=== PATIENT | female | born 1985 | race Caucasian/White ===

== ENCOUNTER 2019-08-23 14:59 | Emergency (ER) | payer OTHER ==
[2019-08-23 15:45] LABS: Absolute Neutrophil Ct (ANC) 6.34 (1.4-6.9); BASOPHIL % 0.5 % (0.0-0.4); Basophil (Absolute #) 0.05 (0-0.4); Eosinophil % 5.1 % (0.00-5.0); Eosinophil (Absolute #) 0.57 (0-0.5); Hematocrit 42.8 % (35-47); Hemoglobin 13.1 gm/dl (12.0-16.0); Lymphocyte (Absolute #) 3.36 (1.0-4.6); Lymphocytes % 30.3 % (24.0-44.0); Mean Cell Volume 88.4 fl (78-100); Mean Corpuscular Hemoglobin 27.1 pg (26-32); Mean Corpuscular Hgb Concent. 30.6 g/dl (32-36); Mean Platelet Volume 9.6 fl (7.5-11.0); Monocyte (Absolute #) 0.77 (0.0-1.3); Monocytes % 6.9 % (0.0-12.0); Neutrophil % 57.2 % (36.0-66.0); Platelet Count 358 K/mm3 (150-450); Red Blood Count 4.84 M/mm3 (4.1-5.4); Red Cell Distribution Width 16.3 % (11.5-14.0); White Blood Count 11.1 K/mm3 (4.0-10.5)
--- NOTE | 2019-08-23 15:48 | ERPHSYRPT ---
- History of Present Illness Time Seen by Provider: 08/23/19 15:10 Source: patient Patient Subjective Stated Complaint: pt to ER with complaints of N/V/D, fever, cough, shortness of breath, dizziness x 1 month. pt states she is on antibiotics for sinus infection. pt needs negative covid test. Triage Nursing Assessment: pt A&Ox4. pt ambulatory. skin pwd. appropriate. Physician History: Patient is a 33-year-old female presents to our ED with complaints of nausea vomiting diarrhea fever cough shortness of breath that is been ongoing for the past several days. Patient states she has been dizzy for about a month. Patient was receiving physical therapy for her shoulder. Patient advised by her therapist that she cannot resume physical therapy and that she tested negative for COVID. Symptoms are mild to moderate in intensity. No specific worsening improving factors. Patient is otherwise healthy. No associated chest pain. Patient voices no other complaints at this time. Patient advised staff that she is currently on Augmentin for sinus infection. Timing/Duration: day(s) Activities at Onset: none Severity of Dyspnea-Max: moderate Severity of Dyspnea-Current: mild Possible Cause: no prior episodes Modifying Factors: Improves With: nothing Associated Symptoms: No chest pain/discomfort, No heart racing, No leg swelling, No painful breathing Allergies/Adverse Reactions: bupropion [From Wellbutrin] Allergy (Verified 08/23/19 15:28) dicyclomine [From Bentyl] Allergy (Verified 08/23/19 15:28) haloperidol [From Haldol] Allergy (Verified 08/23/19 15:28) insulin glargine [From Basaglar KwikPen U-100 Insulin] Allergy (Verified 08/23/19 15:28) ketorolac [From Toradol] Allergy (Verified 08/23/19 15:28) metoclopramide [From Reglan] Allergy (Verified 08/23/19 15:28) ondansetron [From Zofran] Allergy (Verified 08/23/19 15:28) prochlorperazine [From Compazine] Allergy (Verified 08/23/19 15:28) Home Medications: Amox Tr/Potass Clav. 875 mg [Augmentin 875-125 Tablet] 1 tab PO BID 08/23/19 [History] Carbidopa/Levodopa [Sinemet 25-250 mg Tablet] 1 tab PO BID 08/23/19 [History] Diphenhydramine HCl 25 mg [Benadryl 25 mg Capsule] 25 mg PO DAILY 08/23/19 [History] Fluoxetine HCl [Prozac] 80 mg PO DAILY 08/23/19 [History] Gabapentin 1,500 mg PO DAILY 08/23/19 [History] Insulin Detemir [Levemir] 18 units SQ DAILY 08/23/19 [History] Metformin HCl 500 mg [Glucophage 500 MG] 1,000 mg PO DAILY 08/23/19 [History] [place]-3 Fatty Acids/Fish Oil [Fish Oil 1,000 mg Capsule] 2 cap PO DAILY 08/23/19 [History] Pioglitazone 30 mg [Actos 30 MG] 30 mg PO DAILY 08/23/19 [History] Vits W-Ca,Fe,FA(<1Mg) [] 1 tab PO DAILY 08/23/19 [History] Promethazine HCl 25 mg [Phenergan 25 mg] 25 mg PO DAILY 08/23/19 [History] Zolpidem Tartrate 5 mg [Ambien 5 MG Tablet] 5 mg PO DAILY 08/23/19 [History] hydroCHLOROthiazide [Hydrochlorothiazide] 25 mg PO DAILY 08/23/19 [History] Hx Tetanus, Diphtheria Vaccination/Date Given: No Hx Influenza Vaccination/Date Given: No Hx Pneumococcal Vaccination/Date Given: No Immunizations Up to Date: Yes Travel Risk - International Travel Have you traveled outside of the country in past 3 weeks: No - Coronavirus Screening Are you exhibiting any of the following symptoms?: Yes Symptoms: Fever, Cough: New Onset, Shortness of Breath, Vomiting/Diarrhea, Headaches/Body Aches/Fatigue Close contact with a COVID-19 positive Pt in past 14-21 Days: No - Review of Systems Constitutional: No Symptoms, No Fever, No Chills Eyes: No Symptoms Ears, Nose, & Throat: No Symptoms Respiratory: No Symptoms, No Cough, No Dyspnea Cardiac: No Symptoms, No Chest Pain, No Edema, No Syncope Abdominal/Gastrointestinal: No Symptoms, No Abdominal Pain, No Nausea, No Vomiting, No Diarrhea Genitourinary Symptoms: No Symptoms, No Dysuria Musculoskeletal: No Symptoms, No Back Pain, No Neck Pain Skin: No Symptoms, No Rash Neurological: No Symptoms, No Dizziness, No Focal Weakness, No Sensory Changes Psychological: No Symptoms Endocrine: No Symptoms Hematologic/Lymphatic: No Symptoms Immunological/Allergic: No Symptoms All Other Systems: Reviewed and Negative - Past Medical History Pertinent Past Medical History: Yes Neurological History: Migraines Respiratory History: COPD Endocrine Medical History: Diabetes Type II Psycho-Social History: Anxiety, Depression - Past Surgical History Past Surgical History: Yes Gastrointestinal: Cholecystectomy Female Surgical History: Section, Tubal Ligation - Social History Smoking Status: Current every day smoker How long have you smoked: 24 years Exposure to second hand smoke: Yes Drug Use: none Patient Lives Alone: No - Female History Hx Now: No - Nursing Vital Signs Nursing Vital Signs: Initial Vital Signs Temperature 98.1 F 08/23/19 15:09 Pulse Rate 99 H 08/23/19 15:09 Respiratory Rate 18 08/23/19 15:09 Blood Pressure 126/93 08/23/19 15:09 O2 Sat by Pulse Oximetry 97 08/23/19 15:09 - Physical Exam General Appearance: no apparent distress, alert Eye Exam: PERRL/EOMI Ears, Nose, Throat Exam: hearing grossly normal, normal ENT inspection Neck Exam: normal inspection, supple Respiratory Exam: normal breath sounds, lungs clear, airway intact, No chest tenderness, No respiratory distress Cardiovascular/Chest Exam: normal heart sounds, regular rate/rhythm Abdominal/Gastrointestinal Exam: soft, No tenderness, No distention, No mass Extremity Exam: non-tender, normal range of motion, normal inspection, no calf tenderness, no pedal edema Peripheral Pulses Exam: dorsalis-pedis (R): 2+, dorsalis-pedis (L): 2+ Neurologic Exam: alert, oriented x 3, cooperative, 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 nml as tested, sensation nml, No motor deficits Skin Exam: normal color, warm, No dry Lymphatic Exam: No adenopathy SpO2 Interpretation: normal SpO2: 95 O2 Delivery: Room Air - Course Nursing assessment & vital signs reviewed: Yes EKG Interpreted by Me: RATE ([id number]), Sinus Rhythm, NORMAL AXIS, NORMAL INTERVALS - Radiology Exams Chest X-ray Interpretation: Discussed w/ radiologist (Portable chest demonstrates normal heart lungs and bony thorax with incidental right lung calcified granuloma.) Ordered Tests: Active Orders 24 hr Category Date Time Status Resident Assistant Cna STAT Care 08/23/19 15:17 Active EKG-ER Only STAT Care 08/23/19 15:15 Active IV Insertion STAT Care 08/23/19 15:15 Active Pulse Oximetry (ED) STAT Care 08/23/19 15:15 Active CHEST 1 VIEW (PORTABLE) Stat Exams 08/23/19 15:16 Completed CHEST WITH CONTRAST [CT] Stat Exams 08/23/19 16:11 Completed BLOOD CULTURE Stat Lab 08/23/19 15:35 Received CBC W DIFF Stat Lab 08/23/19 15:30 Completed CMP Stat Lab 08/23/19 15:30 Completed D-DIMER QUANTITATIVE Stat Lab 08/23/19 15:30 Completed HCG,QUALITATIVE URINE Stat Lab 08/23/19 15:16 Uncollected TROPONIN Q3H Lab 08/23/19 15:30 Completed TROPONIN Q3H Lab 08/23/19 18:30 Ordered TROPONIN Q3H Lab 08/23/19 21:30 Ordered TROPONIN Q3H Lab 08/24/19 00:30 Ordered TROPONIN Q3H Lab 08/24/19 03:30 Ordered UA W/RFX UR CULTURE Stat Lab 08/23/19 15:16 Uncollected Lab/Rad Data: Laboratory Result Diagrams 08/23/19 15:30 08/23/19 15:30 Laboratory Results 08/23/19 08/23/19 08/23/19 Range/Units 15:30 15:30 15:30 WBC (4.0-10.5) K/mm3 RBC (4.1-5.4) M/mm3 Hgb (12.0-16.0) gm/dl Hct (35-47) % MCV (78-100) fl MCH (26-32) pg MCHC (32-36) g/dl RDW (11.5-14.0) % Plt Count (150-450) K/mm3 MPV (7.5-11.0) fl Gran % (36.0-66.0) % Eos # (Auto) (0-0.5) Absolute Lymphs (auto) (1.0-4.6) Absolute Monos (auto) (0.0-1.3) Lymphocytes % (24.0-44.0) % Monocytes % (0.0-12.0) % Eosinophils % (0.00-5.0) % Basophils % (0.0-0.4) % Absolute Granulocytes (1.4-6.9) Basophils # (0-0.4) D-Dimer 808 H* (215-500) ng/mL Sodium (137-145) mmol/L Potassium (3.5-5.1) mmol/L Chloride (98-107) mmol/L Carbon Dioxide (22-30) mmol/L Anion Gap (5-15) MEQ/L BUN (7-17) mg/dL Creatinine (0.52-1.04) mg/dL Estimated GFR ML/MIN Glucose (74-106) mg/dL Calcium (8.4-10.2) mg/dL Total Bilirubin (0.2-1.3) mg/dL AST (14-36) U/L ALT (0-35) U/L Alkaline Phosphatase (38-126) U/L Troponin I < 0.012 (0.000-0.034) ng/mL Serum Total Protein (6.3-8.2) g/dL Albumin (3.5-5.0) g/dL Influenza Type A Ag NEGATIVE (NEGATIVE) Influenza Type B Ag NEGATIVE (NEGATIVE) RSV (PCR) NEGATIVE (Negative) 08/23/19 08/23/19 Range/Units 15:30 15:30 WBC 11.1 H (4.0-10.5) K/mm3 RBC 4.84 (4.1-5.4) M/mm3 Hgb 13.1 (12.0-16.0) gm/dl Hct 42.8 (35-47) % MCV 88.4 (78-100) fl MCH 27.1 (26-32) pg MCHC 30.6 L (32-36) g/dl RDW 16.3 H (11.5-14.0) % Plt Count 358 (150-450) K/mm3 MPV 9.6 (7.5-11.0) fl Gran % 57.2 (36.0-66.0) % Eos # (Auto) 0.57 H (0-0.5) Absolute Lymphs (auto) 3.36 (1.0-4.6) Absolute Monos (auto) 0.77 (0.0-1.3) Lymphocytes % 30.3 (24.0-44.0) % Monocytes % 6.9 (0.0-12.0) % Eosinophils % 5.1 H (0.00-5.0) % Basophils % 0.5 (0.0-0.4) % Absolute Granulocytes 6.34 (1.4-6.9) Basophils # 0.05 (0-0.4) D-Dimer (215-500) ng/mL Sodium 138 (137-145) mmol/L Potassium 3.8 (3.5-5.1) mmol/L Chloride 104 (98-107) mmol/L Carbon Dioxide 24 (22-30) mmol/L Anion Gap 13.6 (5-15) MEQ/L BUN 8 (7-17) mg/dL Creatinine 0.54 (0.52-1.04) mg/dL Estimated GFR > 60.0 ML/MIN Glucose 139 H (74-106) mg/dL Calcium 9.7 (8.4-10.2) mg/dL Total Bilirubin 0.40 (0.2-1.3) mg/dL AST 23 (14-36) U/L ALT 21 (0-35) U/L Alkaline Phosphatase 75 (38-126) U/L Troponin I (0.000-0.034) ng/mL Serum Total Protein 7.7 (6.3-8.2) g/dL Albumin 4.3 (3.5-5.0) g/dL Influenza Type A Ag (NEGATIVE) Influenza Type B Ag (NEGATIVE) RSV (PCR) (Negative) - Progress Progress: improved Air Movement: good Blood Culture(s) Obtained: Yes Antibiotics given: No - Departure Departure Disposition: Home Clinical Impression: Left adrenal mass, Granulomatous disease, chronic, Fatty liver, Thoracic arthritis Condition: Stable Critical Care Time: No Referrals: DOCTOR,NO FAMILY [Primary Care Provider] - Additional Instructions: Discharge/Care Plan SYLVIA MYERS was seen on 08/23/19 in the Emergency Room. The patient was counseled regarding Diagnosis,Lab results, Imaging studies, need for follow up and when to return to the Emergency Room. Prescriptions given: Discharge Note I have spoken with the patient and/or caregivers. I have explained the patient's condition, diagnosis and treatment plan based on the information available to me at this time. I have answered the patient's and/or caregiver's questions and addressed any concerns. The patient and/or caregivers have as good understanding of the patient's diagnosis, condition and treatment plan as can be expected at this point. The vital signs have been stable. The patient's condition is stable and appropriate for discharge from the emergency department. The patient will pursue further outpatient evaluation with the primary care physician or other designated or consulting physician as outlined in the discharge instructions. The patient and/or caregivers are agreeable to this plan of care and follow-up instructions have been explained in detail. The patient and/or caregivers have received these instruction. The patient/and or caregivers are aware that any significant change in condition or worsening of symptoms should prompt an immediate return to this or the closest emergency department or call 911.
[2019-08-23 16:07] LABS: ALBUMIN 4.3 g/dL (3.5-5.0); ALKALINE PHOSPHATASE 75 U/L (38-126); ANION GAP 13.6 MEQ/L (5-15); BLOOD UREA NITROGEN 8 mg/dL (7-17); CHLORIDE 104 mmol/L (98-107); Calcium 9.7 mg/dL (8.4-10.2); Carbon Dioxide 24 mmol/L (22-30); Creatinine 1 0.54 mg/dL (0.52-1.04); Glucose 139 mg/dL (74-106); Potassium 3.8 mmol/L (3.5-5.1); SGOT/AST 23 U/L (14-36); SGPT/ALT 21 U/L (0-35); SODIUM 138 mmol/L (137-145); Total Protein 7.7 g/dL (6.3-8.2)
[2019-08-23 16:19] LABS: INFLUENZA A NEGATIVE (NEGATIVE); INFLUENZA B NEGATIVE (NEGATIVE); RESPIRATORY SYNCTIAL VIRUS NEGATIVE (Negative)
--- NOTE | 2019-08-23 16:39 | XRAY ---
Indication: Fever, cough, nausea, and vomiting. Comparison: None Portable chest demonstrates normal heart, lungs, and bony thorax with incidental right lung calcified granuloma.
[2019-08-23 17:03] VITALS: O2SAT 95
--- NOTE | 2019-08-23 17:14 | XRAY ---
Indication: Multiple contiguous axial images obtained through the chest using 80 cc Isovue 370 contrast and PE protocol. Comparison: None There is suboptimal opacification of the pulmonary arteries limiting evaluation for pulmonary embolus. No large central pulmonary embolus. Heart is not enlarged. Several mediastinal/subcarinal calcified nodes. No pathologic mediastinal/hilar lymphadenopathy. Lungs are inflated and clear with a few incidental right middle lobe calcified granulomas. No suspicious pulmonary mass, infiltrate, or effusion. Bony thorax intact with minimal degenerative changes throughout the spine and old right 8/9 rib fractures. Limited upper abdomen demonstrates fatty liver. Also 3.3 cm noncalcified left adrenal gland mass. Impression: 1. Pulmonary embolus evaluation limited due to suboptimal opacification. No large central pulmonary embolus. 2. No acute cardiopulmonary abnormalities. 3. 3.3 cm left adrenal gland mass. Finding possibly adenoma and can be confirmed with a noncontrasted exam. 4. Incidental fatty liver and old granulomatous disease.
[2019-08-23 18:09] LABS: Appearance CLEAR (CLEAR); Bilirubin NEGATIVE (NEGATIVE); Blood NEGATIVE Ery/ul (0-5); Epithelial Cells RARE /HPF (FEW); Glucose NEGATIVE (NEGATIVE); Ketones NEGATIVE (NEGATIVE); Leukocyte Esterase NEGATIVE (NEGATIVE); Nitrite NEGATIVE (NEGATIVE); Protein,Urine Dip NEGATIVE (Negative); Specific Gravity 1.028 (1.005-1.025); Urobilinogen NEGATIVE mg/dL (0-1)
[2019-08-23 18:41] VITALS: BP 95/60; PULSE 68
== END 2019-08-23 18:41 | disposition home or self-care (01) ==
LOC: ED 14:59
DX: E27.9 Disorder of adrenal gland, unspecified (principal); D71 Functional disorders of polymorphonuclear neutrophils; K76.0 Fatty (change of) liver, not elsewhere classified; M46.94 Unspecified inflammatory spondylopathy, thoracic region; J32.9 Chronic sinusitis, unspecified; J44.9 Chronic obstructive pulmonary disease, unspecified; E11.9 Type 2 diabetes mellitus without complications; F41.9 Anxiety disorder, unspecified; F32.9 Major depressive disorder, single episode, unspecified; Z72.0 Tobacco use; Z79.4 Long term (current) use of insulin; Z79.899 Other long term (current) drug therapy
CPT/HCPCS: 36000; 36415; 71045; 71260; 80053; 81001; 84484; 84703; 85025; 85379; 87040; 87631; 93005; 93041; 94760; 99284; U0003

== ENCOUNTER 2019-12-09 15:32 | Emergency (ER) | payer OTHER ==
--- NOTE | 2019-12-09 15:33 | ERPHSYRPT ---
- History of Present Illness Time Seen by Provider: 12/09/19 15:33 Source: patient Exam Limitations: no limitations Physician History: This is a diabetic, right-handed white 34-year-old white female who was breaking up a fight between a new dog that she recently rescued and her home dog. The new rescue dog was not acting strangely or unusual. The patient had bites to her left hand. Patient's tetanus shot is not up-to-date. Additionally, the new rescue dog is [id number] and it is unclear whether the dog has its immunizations up-to-date. Timing/Duration: today Quality: burning, painful Severity: mild Location: hands (Left) Possible Causes: other (Dog bite) Associated Symptoms: denies symptoms Allergies/Adverse Reactions: bupropion [From Wellbutrin] Allergy (Verified 08/23/19 15:28) dicyclomine [From Bentyl] Allergy (Verified 08/23/19 15:28) haloperidol [From Haldol] Allergy (Verified 08/23/19 15:28) insulin glargine [From Basaglar KwikPen U-100 Insulin] Allergy (Verified 08/23/19 15:28) ketorolac [From Toradol] Allergy (Verified 08/23/19 15:28) metoclopramide [From Reglan] Allergy (Verified 08/23/19 15:28) ondansetron [From Zofran] Allergy (Verified 08/23/19 15:28) prochlorperazine [From Compazine] Allergy (Verified 08/23/19 15:28) Home Medications: Amox Tr/Potass Clav. 875 mg [Augmentin 875-125 Tablet] 1 tab PO BID 08/23/19 [History] Carbidopa/Levodopa [Sinemet 25-250 mg Tablet] 1 tab PO BID 08/23/19 [History] Diphenhydramine HCl 25 mg [Benadryl 25 mg Capsule] 25 mg PO DAILY 08/23/19 [History] Fluoxetine HCl [Prozac] 80 mg PO DAILY 08/23/19 [History] Gabapentin 1,500 mg PO DAILY 08/23/19 [History] Insulin Detemir [Levemir] 18 units SQ DAILY 08/23/19 [History] Metformin HCl 500 mg [Glucophage 500 MG] 1,000 mg PO DAILY 08/23/19 [History] [place]-3 Fatty Acids/Fish Oil [Fish Oil 1,000 mg Capsule] 2 cap PO DAILY 08/23/19 [History] Pioglitazone 30 mg [Actos 30 MG] 30 mg PO DAILY 08/23/19 [History] Vits W-Ca,Fe,FA(<1Mg) [] 1 tab PO DAILY 08/23/19 [History] Promethazine HCl 25 mg [Phenergan 25 mg] 25 mg PO DAILY 08/23/19 [History] Zolpidem Tartrate 5 mg [Ambien 5 MG Tablet] 5 mg PO DAILY 08/23/19 [History] hydroCHLOROthiazide [Hydrochlorothiazide] 25 mg PO DAILY 08/23/19 [History] Hx Tetanus, Diphtheria Vaccination/Date Given: No Hx Influenza Vaccination/Date Given: No Hx Pneumococcal Vaccination/Date Given: No Travel Risk - International Travel Have you traveled outside of the country in past 3 weeks: No - Coronavirus Screening Are you exhibiting any of the following symptoms?: No Close contact with a COVID-19 positive Pt in past 14-21 Days: No - Review of Systems Constitutional: No Symptoms Eyes: No Symptoms Ears, Nose, & Throat: No Symptoms Respiratory: No Symptoms Cardiac: No Symptoms Abdominal/Gastrointestinal: No Symptoms Genitourinary Symptoms: No Symptoms Musculoskeletal: No Symptoms Skin: Other (Dog bites to left hand) Neurological: No Symptoms Psychological: No Symptoms Endocrine: No Symptoms Hematologic/Lymphatic: No Symptoms Immunological/Allergic: No Symptoms All Other Systems: Reviewed and Negative - Past Medical History Pertinent Past Medical History: Yes Neurological History: Migraines ENT History: No Pertinent History Cardiac History: No Pertinent History Respiratory History: COPD Endocrine Medical History: Diabetes Type II Musculoskeletal History: No Pertinent History GI Medical History: No Pertinent History History: No Pertinent History Psycho-Social History: Anxiety, Depression - Past Surgical History Past Surgical History: Yes Gastrointestinal: Cholecystectomy Female Surgical History: Section, Tubal Ligation - Social History Smoking Status: Current every day smoker How long have you smoked: 24 years Exposure to second hand smoke: Yes Drug Use: none Patient Lives Alone: No - Nursing Vital Signs Nursing Vital Signs: Initial Vital Signs Temperature 98.3 F 12/09/19 15:35 Pulse Rate 110 H 12/09/19 15:35 Respiratory Rate 18 12/09/19 15:35 Blood Pressure 139/87 12/09/19 15:35 O2 Sat by Pulse Oximetry 95 12/09/19 15:35 Pain Scale Pain Intensity 8 - Physical Exam General Appearance: no apparent distress, alert, anxiety, obese Eye Exam: PERRL/EOMI, eyes nml inspection Ears, Nose, Throat Exam: normal ENT inspection, moist mucous membranes Neck Exam: normal inspection, non-tender, supple, full range of motion Respiratory Exam: airway intact, No chest tenderness, No respiratory distress Gastrointestinal/Abdomen Exam: No tenderness Pelvic Exam: not done Rectal Exam: not done Back Exam: normal inspection, normal range of motion, No CVA tenderness, No vertebral tenderness Extremity Exam: normal inspection, normal range of motion, pelvis stable Neurologic Exam: alert, oriented x 3, cooperative, 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 There is approximately half centimeter left interdigital space puncture site between the left fourth and fifth digits. No active bleeding present. Patient is neurovascularly intact.) Lymphatic Exam: No adenopathy SpO2 Interpretation: normal O2 Delivery: Room Air - Course Nursing assessment & vital signs reviewed: No Ordered Tests: Active Orders 24 hr Category Date Time Status Wound Care STAT Care 12/09/19 15:47 Active Medication Summary Discontinued Medications Generic Name Dose Route Start Last Admin Trade Name Freq PRN Reason Stop Dose Admin Amoxicillin/Clavulanate Potassium 500 mg 12/09/19 15:46 12/09/19 15:53 Augmentin 500-125 Tablet PO 12/09/19 15:47 500 mg STAT ONE Administration Amoxicillin/Clavulanate Potassium Confirm 12/09/19 15:52 Augmentin 500-125 Tablet Administered 12/09/19 15:53 Dose 500 mg .ROUTE .STK-MED ONE Diphtheria/Tetanus/Acell Pertussis 0.5 ml 12/09/19 15:51 12/09/19 16:02 Adacel Vial IM 12/09/19 15:52 Not Given .ONCE ONE Diphtheria/Tetanus/Acell Pertussis Confirm 12/09/19 15:56 Adacel Vial Administered 12/09/19 15:57 Dose 0.5 ml IM .STK-MED ONE Lidocaine HCl 5 ml 12/09/19 15:57 12/09/19 15:58 Xylocaine 1% Hcl 20 Ml Mdv IJ 12/09/19 15:58 5 ml STAT ONE Administration Lidocaine HCl Confirm 12/09/19 15:57 Xylocaine 1% Hcl 20 Ml Mdv Administered 12/09/19 15:58 Dose 5 ml .ROUTE .STK-MED ONE Morphine Sulfate 4 mg 12/09/19 15:45 12/09/19 15:55 Morphine Sulfate 4 Mg Inj IM 12/09/19 15:46 4 mg STAT ONE Administration Morphine Sulfate Confirm 12/09/19 15:52 Morphine Sulfate 4 Mg Inj Administered 12/09/19 15:53 Dose 4 mg .ROUTE .STK-MED ONE Promethazine HCl 12.5 mg 12/09/19 15:45 12/09/19 15:54 Phenergan 25 Mg Inj IM 12/09/19 15:46 12.5 mg STAT ONE Administration Promethazine HCl Confirm 12/09/19 15:51 Phenergan 25 Mg Inj Administered 12/09/19 15:52 Dose 25 mg .ROUTE .STK-MED ONE - Progress Progress: improved, pain not gone completely, re-examined Counseled pt/family regarding: diagnosis, need for follow-up - Departure Departure Disposition: Home Clinical Impression: Dog bite of left hand Condition: Stable Critical Care Time: No Referrals: DOCTOR,NO FAMILY [Primary Care Provider] - Additional Instructions: Keep left hand bite sites clean daily with soap and water. Soak the hand 1-2 times a day in warm soapy water. Do not cover the bite sites with antibiotic ointment. Follow up with [facility] on Wednesday to determine whether or not you need rabies vaccinations. Make sure the dog is quarantined at this time. Prescriptions: Hydrocodone/APAP 5/325 [[place] 5/325 mg] 1 each PO Q8H PRN PRN #6 tablet MDD 3 PRN Reason: Pain Amoxicillin/Potassium Clav [Augmentin 500-125 Tablet] 500 mg PO TID #21 tablet
[2019-12-09] MEDS ORDERED: Phenergan 25 MG INJ IM ONE (15:45)
[2019-12-09] MEDS ORDERED: MORPHINE SULFATE 4 MG INJ IM ONE (15:45)
[2019-12-09] MEDS ORDERED: Augmentin 500-125 Tablet PO ONE (15:46)
[2019-12-09] MEDS ORDERED: Phenergan 25 MG INJ ONE (15:51)
[2019-12-09] MEDS ORDERED: MORPHINE SULFATE 4 MG INJ ONE (15:52)
[2019-12-09] MEDS ORDERED: Augmentin 500-125 Tablet ONE (15:52)
[2019-12-09] MEDS ORDERED: Adacel Vial IM ONE (15:56)
[2019-12-09] MEDS ORDERED: XYLOCAINE 1% HCL 20 ML MDV ONE (15:57)
[2019-12-09] MEDS ORDERED: XYLOCAINE 1% HCL 20 ML MDV IJ ONE (15:57)
[2019-12-09] MEDS: Adacel Vial IM ONE ×2 (15:58→16:02)
[2019-12-09 16:49] VITALS: BP 121/95; PULSE 99; O2SAT 97
== END 2019-12-09 16:58 | disposition home or self-care (01) ==
LOC: ED 15:32
DX: S61.452A Open bite of left hand, initial encounter (principal); W54.0XXA Bitten by dog, initial encounter; Z79.899 Other long term (current) drug therapy; E11.9 Type 2 diabetes mellitus without complications
CPT/HCPCS: 90715; 96372; 99284; J2270; J2550; A9270-GY

== ENCOUNTER 2020-08-08 12:47 | Emergency (ER) | payer OTHER ==
[2020-08-08 13:32] LABS: Absolute Neutrophil Ct (ANC) 8.27 (1.4-6.9); BASOPHIL % 0.4 % (0.0-0.4); Basophil (Absolute #) 0.05 (0-0.4); Eosinophil (Absolute #) 0.51 (0-0.5); Hematocrit 42.1 % (35-47); Hemoglobin 13.2 gm/dl (12.0-16.0); Lymphocyte (Absolute #) 3.18 (1.0-4.6); Mean Cell Volume 87.7 fl (78-100); Mean Corpuscular Hemoglobin 27.5 pg (26-32); Mean Corpuscular Hgb Concent. 31.4 g/dl (32-36); Mean Platelet Volume 9.9 fl (7.5-11.0); Monocyte (Absolute #) 0.71 (0.0-1.3); Monocytes % 5.6 % (0.0-12.0); Platelet Count 454 K/mm3 (150-450); Red Cell Distribution Width 14.3 % (11.5-14.0); White Blood Count 12.7 K/mm3 (4.0-10.5)
[2020-08-08 13:36] LABS: Appearance SLIGHTLY CLOUDY (CLEAR); Bilirubin NEGATIVE (NEGATIVE); Blood NEGATIVE Ery/ul (0-5); Glucose 50 mg/dL (NEGATIVE); Ketones NEGATIVE (NEGATIVE); Leukocyte Esterase NEGATIVE (NEGATIVE); Mucus SLIGHT /HPF (NEGATIVE); Nitrite NEGATIVE (NEGATIVE); Protein,Urine Dip NEGATIVE (Negative); Specific Gravity 1.008 (1.005-1.025); Urobilinogen NEGATIVE mg/dL (0-1)
--- NOTE | 2020-08-08 13:39 | ERPHSYRPT ---
- History of Present Illness Time Seen by Provider: 08/08/20 12:55 Source: patient Exam Limitations: no limitations Patient Subjective Stated Complaint: Pt was diagnosed with a DVT in her left leg last week at [facility] and was placed on blood thinners, pt now thinks that she has a clot in her right leg, pt continues to have pain in both legs Triage Nursing Assessment: Pt was brought to the ER by a friend, murray leg pain rated 8/10, pain with walking, pain with palpatation to the right calf, shortness of breath that the pt thinks is due to sinus problems, unable to sleep, sleeps in car every other day in [place] to save gas money but states that her legs are propped up better in the car than at home, legs warm to touch, Physician History: Patient is a 34-year-old female presents to our ED for evaluation of right calf pain. Patient was diagnosed with a left lower extremity DVT. Diagnosis was made at [facility]. Patient currently on Eliquis. Patient has been taking Eliquis as prescribed. Patient states her right leg is painful to touch. Pain rated 8 out of 10. Patient admits to mild shortness of breath. Patient currently has URI symptomology and attributes her symptoms to the URI. Patient called her primary care doctor and nuclear physics teacher who advised her to come to the ED to rule out PE. Patient states that she sleeps in her car every other day. The circumstances as to why she does is is unclear. However patient denies nausea vomiting. No diaphoresis. No chest pain. Symptoms are mild to moderate in intensity. No specific worsening improving factors. Patient voices no other complaints or concerns at this time. Timing/Duration: today Activities at Onset: activity Severity of Dyspnea-Max: moderate Severity of Dyspnea-Current: mild Possible Cause: no prior episodes Modifying Factors: Improves With: activity Associated Symptoms: calf pain, No cough, No chest pain/discomfort, No fever, No loss of appetite, No lightheadedness, No wheezing, No weakness, No ankle swelling, No muscle spasms hands, No painful breathing Allergies/Adverse Reactions: bupropion [From Wellbutrin] Allergy (Verified 08/08/20 13:10) dicyclomine [From Bentyl] Allergy (Verified 08/08/20 13:10) haloperidol [From Haldol] Allergy (Verified 08/08/20 13:10) insulin glargine [From Basaglar LeftyPen U-100 Insulin] Allergy (Verified 08/08/20 13:10) ketorolac [From Toradol] Allergy (Verified 08/08/20 13:10) metoclopramide [From Reglan] Allergy (Verified 08/08/20 13:10) ondansetron [From Zofran] Allergy (Verified 08/08/20 13:10) prochlorperazine [From Compazine] Allergy (Verified 08/08/20 13:10) Home Medications: Carbidopa/Levodopa [Sinemet 25-250 mg Tablet] 1 tab PO BID 08/23/19 [History] Diphenhydramine HCl 25 mg [Benadryl 25 mg Capsule] 25 mg PO DAILY 08/23/19 [History] Fluoxetine HCl [Prozac] 80 mg PO DAILY 08/23/19 [History] Gabapentin 1,500 mg PO DAILY 08/23/19 [History] Insulin Detemir [Levemir] 60 units SQ DAILY 08/23/19 [History] Metformin HCl 500 mg [Glucophage 500 MG] 1,000 mg PO BID 08/23/19 [History] Pioglitazone 30 mg [Actos 30 MG] 30 mg PO DAILY 08/23/19 [History] Vits W-Ca,Fe,FA(<1Mg) [] 1 tab PO DAILY 08/23/19 [History] Zolpidem Tartrate 5 mg [Ambien 5 MG Tablet] 5 mg PO DAILY 08/23/19 [History] Albuterol Sulfate [Albuterol Sulfate Hfa] 2 inh PO Q6H PRN 08/08/20 [History] Furosemide 40 mg [Lasix 40 MG] 40 mg PO DAILY 08/08/20 [History] Glipizide Xl 10 mg [Glucotrol Xl 10 MG] 10 mg PO BID 08/08/20 [History] PANTOPRAZOLE 40 mg Tablet [Protonix 40MG Tablet] 40 mg PO QAM 08/08/20 [History] Potassium Chloride 10 Meq Tab* [Klor Con 10 MEQ] 10 meq PO DAILY 08/08/20 [History] Zonisamide 50 mg PO QAM 08/08/20 [History] Zonisamide 100 mg PO QPM 08/08/20 [History] Hx Tetanus, Diphtheria Vaccination/Date Given: No Hx Influenza Vaccination/Date Given: No Hx Pneumococcal Vaccination/Date Given: No Travel Risk - International Travel Have you traveled outside of the country in past 3 weeks: No - Coronavirus Screening Are you exhibiting any of the following symptoms?: No Close contact with a COVID-19 positive Pt in past 14-21 Days: No - Vaccine Status Have you recieved a Covid-19 vaccination: No - Review of Systems Constitutional: No Symptoms, No Fever, No Chills Eyes: No Symptoms Ears, Nose, & Throat: No Symptoms Respiratory: No Symptoms, No Cough, No Dyspnea Cardiac: No Symptoms, No Chest Pain, No Edema, No Syncope Abdominal/Gastrointestinal: No Symptoms, No Abdominal Pain, No Nausea, No Vomiting, No Diarrhea Genitourinary Symptoms: No Symptoms, No Dysuria Musculoskeletal: No Symptoms, No Back Pain, No Neck Pain Skin: No Symptoms, No Rash Neurological: No Symptoms, No Dizziness, No Focal Weakness, No Sensory Changes Psychological: No Symptoms Endocrine: No Symptoms Hematologic/Lymphatic: No Symptoms All Other Systems: Reviewed and Negative - Past Medical History Pertinent Past Medical History: Yes Neurological History: Migraines ENT History: No Pertinent History Cardiac History: No Pertinent History, Deep Vein Thrombosis Respiratory History: COPD Endocrine Medical History: Diabetes Type II Musculoskeletal History: No Pertinent History GI Medical History: No Pertinent History History: No Pertinent History Psycho-Social History: Anxiety, Depression - Past Surgical History Past Surgical History: Yes Gastrointestinal: Cholecystectomy Musculoskeletal: Orthopedic Surgery Female Surgical History: Section, Tubal Ligation Other Surgical History: R shoulder - Social History Smoking Status: Current every day smoker How long have you smoked: 24 years Exposure to second hand smoke: Yes Drug Use: none Patient Lives Alone: No - Female History Hx Now: Yes (tubal) - Nursing Vital Signs Nursing Vital Signs: Initial Vital Signs Temperature 98.4 F 08/08/20 12:51 Pulse Rate 95 H 08/08/20 12:51 Blood Pressure 124/105 08/08/20 12:51 O2 Sat by Pulse Oximetry 98 08/08/20 12:51 Pain Scale Pain Intensity 8 - Physical Exam General Appearance: no apparent distress, alert Eye Exam: PERRL/EOMI Ears, Nose, Throat Exam: nasal congestion Neck Exam: normal inspection, supple Respiratory Exam: normal breath sounds, lungs clear, airway intact, No chest tenderness, No respiratory distress Cardiovascular/Chest Exam: normal heart sounds, regular rate/rhythm Abdominal/Gastrointestinal Exam: soft, No tenderness, No distention, No mass Extremity Exam: non-tender, normal range of motion, normal inspection, no pedal edema, zeinab's sign (Positive Homans' sign right lower extremity.), No no calf tenderness, No joint swelling Neurologic Exam: alert, oriented x 3, cooperative, cartography supervisor II-XII nml as tested, sensation nml, No motor deficits Skin Exam: normal color, warm, No dry Lymphatic Exam: adenopathy SpO2 Interpretation: normal SpO2: 96 O2 Delivery: Room Air - Course Nursing assessment & vital signs reviewed: Yes EKG Interpreted by Me: RATE (86), Sinus Rhythm, NORMAL AXIS, NORMAL INTERVALS - Radiology Ultrasound Exam Venous Lower Extremity Ultrasound: tele radiology report (Ultrasound left lower extremity negative for DVT.) Ordered Tests: Active Orders 24 hr Category Date Time Status Mold Cooler STAT Care 08/08/20 13:21 Active EKG-ER Only STAT Care 08/08/20 13:20 Active IV Insertion STAT Care 08/08/20 13:20 Active Pulse Oximetry (ED) STAT Care 08/08/20 13:20 Active CHEST WITH CONTRAST [CT] Stat Exams 08/08/20 13:21 Completed VENOUS UNILAT/LIMITED EXTREMIT [US] Stat Exams 08/08/20 13:40 Completed CBC W DIFF Stat Lab 08/08/20 13:38 Completed CMP Stat Lab 08/08/20 13:38 Completed TROPONIN Q3H Lab 08/08/20 13:38 Completed TROPONIN Q3H Lab 08/08/20 16:32 Completed TROPONIN Q3H Lab 08/08/20 19:30 Ordered TROPONIN Q3H Lab 08/08/20 22:30 Ordered TROPONIN Q3H Lab 08/09/20 01:30 Ordered UA W/RFX UR CULTURE Stat Lab 08/08/20 13:25 Completed Medication Summary Discontinued Medications Generic Name Dose Route Start Last Admin Trade Name Freq PRN Reason Stop Dose Admin Sodium Chloride 1,000 mls @ 999 mls/hr 08/08/20 14:23 08/08/20 15:54 Sodium Chloride 0.9% 1000 Ml IV 08/08/20 15:23 Infused .Q1H1M STA Infusion Sodium Chloride Confirm 08/08/20 14:37 Sodium Chloride 0.9% 1000 Ml Administered 08/08/20 14:38 Dose 1,000 mls @ ud .ROUTE .STK-MED ONE Lab/Rad Data: Laboratory Result Diagrams 08/08/20 13:38 08/08/20 13:38 Laboratory Results 08/08/20 08/08/20 08/08/20 Range/Units 16:32 13:38 13:38 WBC (4.0-10.5) K/mm3 RBC (4.1-5.4) M/mm3 Hgb (12.0-16.0) gm/dl Hct (35-47) % MCV (78-100) fl MCH (26-32) pg MCHC (32-36) g/dl RDW (11.5-14.0) % Plt Count (150-450) K/mm3 MPV (7.5-11.0) fl Gran % (36.0-66.0) % Eos # (Auto) (0-0.5) Absolute Lymphs (auto) (1.0-4.6) Absolute Monos (auto) (0.0-1.3) Lymphocytes % (24.0-44.0) % Monocytes % (0.0-12.0) % Eosinophils % (0.00-5.0) % Basophils % (0.0-0.4) % Absolute Granulocytes (1.4-6.9) Basophils # (0-0.4) Sodium 135 L (137-145) mmol/L Potassium 4.1 (3.5-5.1) mmol/L Chloride 102 (98-107) mmol/L Carbon Dioxide 22 (22-30) mmol/L Anion Gap 14.7 (5-15) MEQ/L BUN 9 (7-17) mg/dL Creatinine 0.56 (0.52-1.04) mg/dL Estimated GFR > 60.0 ML/MIN Glucose 312 H (74-106) mg/dL Calcium 9.4 (8.4-10.2) mg/dL Total Bilirubin 0.40 (0.2-1.3) mg/dL AST 25 (14-36) U/L ALT 18 (0-35) U/L Alkaline Phosphatase 103 (38-126) U/L Troponin I < 0.012 < 0.012 (0.000-0.034) ng/mL Serum Total Protein 7.5 (6.3-8.2) g/dL Albumin 4.3 (3.5-5.0) g/dL Urine Color (YELLOW) Urine Appearance (CLEAR) Urine pH (5-6) Ur Specific [place] (1.005-1.025) Urine Protein (Negative) Urine Ketones (NEGATIVE) Urine Blood (0-5) Wally/ul Urine Nitrite (NEGATIVE) Urine Bilirubin (NEGATIVE) Urine Urobilinogen (0-1) mg/dL Ur Leukocyte Esterase (NEGATIVE) Urine WBC (Auto) (0-5) /HPF Urine RBC (Auto) (0-2) /HPF U Epithel Cells (Auto) (FEW) /HPF Urine Bacteria (Auto) (NEGATIVE) /HPF Urine Mucus (Auto) (NEGATIVE) /HPF Urine Culture Reflexed (NO) Urine Glucose (NEGATIVE) mg/dL 08/08/20 08/08/20 Range/Units 13:38 13:25 WBC 12.7 H (4.0-10.5) K/mm3 RBC 4.80 (4.1-5.4) M/mm3 Hgb 13.2 (12.0-16.0) gm/dl Hct 42.1 (35-47) % MCV 87.7 (78-100) fl MCH 27.5 (26-32) pg MCHC 31.4 L (32-36) g/dl RDW 14.3 H (11.5-14.0) % Plt Count 454 H (150-450) K/mm3 MPV 9.9 (7.5-11.0) fl Gran % 65.0 (36.0-66.0) % Eos # (Auto) 0.51 H (0-0.5) Absolute Lymphs (auto) 3.18 (1.0-4.6) Absolute Monos (auto) 0.71 (0.0-1.3) Lymphocytes % 25.0 (24.0-44.0) % Monocytes % 5.6 (0.0-12.0) % Eosinophils % 4.0 (0.00-5.0) % Basophils % 0.4 (0.0-0.4) % Absolute Granulocytes 8.27 H (1.4-6.9) Basophils # 0.05 (0-0.4) Sodium (137-145) mmol/L Potassium (3.5-5.1) mmol/L Chloride (98-107) mmol/L Carbon Dioxide (22-30) mmol/L Anion Gap (5-15) MEQ/L BUN (7-17) mg/dL Creatinine (0.52-1.04) mg/dL Estimated GFR ML/MIN Glucose (74-106) mg/dL Calcium (8.4-10.2) mg/dL Total Bilirubin (0.2-1.3) mg/dL AST (14-36) U/L ALT (0-35) U/L Alkaline Phosphatase (38-126) U/L Troponin I (0.000-0.034) ng/mL Serum Total Protein (6.3-8.2) g/dL Albumin (3.5-5.0) g/dL Urine Color YELLOW (YELLOW) Urine Appearance SLIGHTLY CLOUDY (CLEAR) Urine pH 6.0 (5-6) Ur Specific [place] 1.008 (1.005-1.025) Urine Protein NEGATIVE (Negative) Urine Ketones NEGATIVE (NEGATIVE) Urine Blood NEGATIVE (0-5) Wally/ul Urine Nitrite NEGATIVE (NEGATIVE) Urine Bilirubin NEGATIVE (NEGATIVE) Urine Urobilinogen NEGATIVE (0-1) mg/dL Ur Leukocyte Esterase NEGATIVE (NEGATIVE) Urine WBC (Auto) NONE (0-5) /HPF Urine RBC (Auto) NONE (0-2) /HPF U Epithel Cells (Auto) NONE (FEW) /HPF Urine Bacteria (Auto) NONE (NEGATIVE) /HPF Urine Mucus (Auto) SLIGHT (NEGATIVE) /HPF Urine Culture Reflexed NO (NO) Urine Glucose 50 (NEGATIVE) mg/dL - Progress Progress: improved Air Movement: good Progress Note: Patient reassessed. No active shortness of breath. However patient ambulated in our ED. No desaturation of oxygen. However patient complained of increased chest pressure. Patient also complained of bilateral calf pain. Ultrasound of left leg was negative for DVT. 08/08/20 18:07 08/08/20 18:44 Patient is being transferred out to [facility]. Patient stated that she could not go to [facility] at the moment because she had business to take care of at home. Patient states she will go directly to [facility] after she takes her visits at home. Patient is of sound mind. Patient is appropriate to make informed and independent medical decisions. Patient understands that leaving AGAINST MEDICAL ADVICE can result in delayed diagnosis, increased risk of morbidity, mortality, short and long-term disability including . In spite of these risks, patient has decided to leave AGAINST MEDICAL ADVICE. Patient understands that she may return to our ED at any point if she reconsiders. Patient agrees to follow-up with his or her primary care doctor within 48 hours for reevaluation. Patient voices no other complaints or concerns at this time. Blood Culture(s) Obtained: No Antibiotics given: No Discussed with .: Shelley Will see patient in: other (Case discussed Dr. Dee. Dr. Dee advises transfer to [place] to see her nuclear physics teacher. Patient may also require pulmonary.) Counseled pt/family regarding: lab results, diagnosis, rad results - Departure Departure Disposition: AMA Clinical Impression: Hyperglycemia, URI (upper respiratory infection), Pulmonary embolism, Lung granuloma, Lung blebs, Fatty liver, Adrenal mass Condition: Stable Critical Care Time: No Referrals: VANESA LUCIANO [Primary Care Provider] -
[2020-08-08 13:49] LABS: ALBUMIN 4.3 g/dL (3.5-5.0); ALKALINE PHOSPHATASE 103 U/L (38-126); ANION GAP 14.7 MEQ/L (5-15); BLOOD UREA NITROGEN 9 mg/dL (7-17); CHLORIDE 102 mmol/L (98-107); Calcium 9.4 mg/dL (8.4-10.2); Carbon Dioxide 22 mmol/L (22-30); Creatinine 1 0.56 mg/dL (0.52-1.04); EST GLOMERULAR FILTRATION RATE > 60.0 ML/MIN; Glucose 312 mg/dL (74-106); Potassium 4.1 mmol/L (3.5-5.1); SGOT/AST 25 U/L (14-36); SGPT/ALT 18 U/L (0-35); SODIUM 135 mmol/L (137-145); Total Protein 7.5 g/dL (6.3-8.2)
[2020-08-08 13:59] VITALS: PULSE 98
[2020-08-08 14:00] VITALS: O2SAT 96
[2020-08-08 14:13] VITALS: BP 142/92
[2020-08-08] MEDS ORDERED: Sodium Chloride 0.9% 1000 ML 1,000 ML IV STA (14:23)
[2020-08-08] MEDS ORDERED: Sodium Chloride 0.9% 1000 ML 1,000 ML ONE (14:37)
--- NOTE | 2020-08-08 15:44 | XRAY ---
Exam: CT of the chest with IV contrast from 08/08/2020. Total DLP: 1429.57 mGy-cm Comparison: Exam: CT of the chest with IV contrast from 08/23/2019. Indication: 34-year-old female with elevated d-dimer; consider pulmonary embolus. Technique: Post-IV contrast axial images were obtained through the chest using the PE protocol. Reconstructed coronal and sagittal images were created and reviewed. In addition, some axial MIP images were generated. On axial image #68, I note a filling defect within the proximal descending right lower lobe pulmonary artery consistent with pulmonary embolism. This is also well seen on sagittal image #58 of series 302. Clot burden is small. I see no other filling defects to suggest clot/emboli. The main pulmonary artery segment measures 3.1 cm in width which is slightly increased. However, this is unchanged from the prior CT. The heart size is normal without pericardial effusion. I see no evidence of thoracic aortic aneurysm or dissection. Granulomatous calcifications are seen within the distal right paratracheal projection, anterior to the derian, the subcarinal projection to the right of midline, and the right hilum. There also a couple small calcified granulomas anterior laterally within the right midlung field. No pathological mediastinal or perihilar lymphadenopathy is seen. The lung window images reveal no infiltrates, suspicious soft tissue lung nodularity, pneumothorax, or pleural effusion. A few small pleural blebs are seen at the posterior right infrahilar projection and medial right lung base representing no change. I believe there is some mild fatty infiltration within the liver. A small amount of contrast or medication is seen within the stomach lumen. The right adrenal gland appears unremarkable. The left adrenal gland reveals an oval-shaped 3.4 cm x 2.2 cm soft tissue mass measuring +41.4 Hounsfield units. I don't believe this is significantly changed from 08/23/2019. This might represent an adrenal adenoma. However, this exam is not definitive. The skeleton reveals small lower thoracic vertebral endplate spurs. An acute fracture is not seen. Impression 1. The CT findings are positive for small pulmonary embolus within a descending right lower lobe pulmonary artery. This report was called to the Emergency Department at 3:29 PM on 08/08/2020. 2. The main pulmonary artery segment measures 3.1 cm in width which is slightly increased. However, this is unchanged from 08/23/2019. 3. Old healed granulomatous disease, fatty liver, and relatively stable left adrenal mass are again seen.
--- NOTE | 2020-08-08 15:52 | XRAY ---
Exam: Right lower extremity duplex Doppler venous ultrasound exam from 08/08/2020. Comparison: None. Indication: Right lower extremity pain; rule out DVT. Technique: Bhardwaj scale images, color blood flow images, and Doppler tracings without and with Doppler signal augmentation were obtained of the right lower extremity. Findings: There is a note on the patient's information sheet that a left lower extremity DVT was found at another facility about one week ago. Normal transducer compression, color flow imaging, and Doppler signal augmentation are seen throughout the deep veins of the right lower extremity. In addition, I see normal color flow imaging, transducer compression, and Doppler tracings within the greater saphenous vein within the proximal right thigh. Impression: 1. No evidence of deep venous thrombosis is seen within the right lower extremity. Nor do I see evidence of superficial venous thrombosis within the greater saphenous vein of the proximal right thigh.
== END 2020-08-08 18:47 | disposition short-term general hospital (02) ==
LOC: ED 12:47
DX: E11.65 Type 2 diabetes mellitus with hyperglycemia (principal); J06.9 Acute upper respiratory infection, unspecified; I26.99 Other pulmonary embolism without acute cor pulmonale; J84.10 Pulmonary fibrosis, unspecified; J68.9 Unspecified respiratory condition due to chemicals, gases, fumes and vapors; J43.9 Emphysema, unspecified; K76.0 Fatty (change of) liver, not elsewhere classified; E27.9 Disorder of adrenal gland, unspecified
CPT/HCPCS: 36000; 36415; 71260; 80053; 81001; 84484; 85025; 93005; 93041; 93971; 94760; 96360; 99284

== ENCOUNTER 2021-01-20 03:40 | Emergency (ER) | payer OTHER ==
[2021-01-20 03:48] VITALS: O2SAT 98
--- NOTE | 2021-01-20 04:55 | ERPHSYRPT ---
- History of Present Illness Time Seen by Provider: 01/20/21 04:00 Source: patient Exam Limitations: no limitations Patient Subjective Stated Complaint: I was feeling bad so I checked my BS and my meter said HI, so I took 15 units of Admelog and then I bottomed out. So then I ate a cinnamon roll. Triage Nursing Assessment: pt ambulated into ER, alert and oriented, states, "My BS was hi on my meter". Pt then informed me that she took 15 units of Admelog and then bottomed out. She ate a cinnamon roll. We checked pt's BS in ER twice upon arrival, results 125 and 128. Physician History: This is a 35-year-old obese white female who is diabetic and has a history of gastroesophageal reflux disease, COPD, migraine headaches and fibromyalgia presents to the emergency department concerned that she has hyperglycemic episode. Her story was varied depending on if she spoke with the nurse or with me. The story she told me was at approximately 1030 she goes into work and she was not feeling very well so she took her usual insulin medicine. She then checked her blood sugar at work and it was high so she took more insulin and her symptoms of sweating weakness was somewhat overwhelming and she thinks she bottomed out on her blood sugar level. She ate a cinnamon roll and that made her feel better but overall still does not feel well. She presented to the emergency department and 2 Accu-Cheks were performed and they read 125 and 128 respectively. Patient denies shortness of breath. She denies chest pain. Timing/Duration: yesterday Severity: mild (To moderate) Modifying Factors: Improves With: eating (Danielle her blood sugar to 125/128 level) Associated Symptoms: diaphoresis, weakness, No shortness of breath, No chest pain, No fever Allergies/Adverse Reactions: bupropion [From Wellbutrin] Allergy (Verified 01/20/21 03:59) dicyclomine [From Bentyl] Allergy (Verified 01/20/21 03:59) haloperidol [From Haldol] Allergy (Verified 01/20/21 03:59) insulin glargine [From Basaglar KwikPen U-100 Insulin] Allergy (Verified 01/20/21 03:59) ketorolac [From Toradol] Allergy (Verified 01/20/21 03:59) metoclopramide [From Reglan] Allergy (Verified 01/20/21 03:59) ondansetron [From Zofran] Allergy (Verified 01/20/21 03:59) prochlorperazine [From Compazine] Allergy (Verified 01/20/21 03:59) Home Medications: Carbidopa/Levodopa [Sinemet 25-250 mg Tablet] 1 tab PO BID 08/23/19 [History] Diphenhydramine HCl 25 mg [Benadryl 25 mg Capsule] 25 mg PO DAILY 08/23/19 [History] Fluoxetine HCl [Prozac] 80 mg PO DAILY 08/23/19 [History] Gabapentin 1,500 mg PO DAILY 08/23/19 [History] Insulin Detemir [Levemir] 60 units SQ DAILY 08/23/19 [History] Metformin HCl 500 mg [Glucophage 500 MG] 1,000 mg PO BID 08/23/19 [History] Pioglitazone 30 mg [Actos 30 MG] 30 mg PO DAILY 08/23/19 [History] Vits W-Ca,Fe,FA(<1Mg) [] 1 tab PO DAILY 08/23/19 [History] Zolpidem Tartrate 5 mg [Ambien 5 MG Tablet] 5 mg PO DAILY 08/23/19 [History] Albuterol Sulfate [Albuterol Sulfate Hfa] 2 inh PO Q6H PRN 08/08/20 [History] Furosemide 40 mg [Lasix 40 MG] 40 mg PO DAILY 08/08/20 [History] Glipizide Xl 10 mg [Glucotrol Xl 10 MG] 10 mg PO BID 08/08/20 [History] PANTOPRAZOLE 40 mg Tablet [Protonix 40MG Tablet] 40 mg PO QAM 08/08/20 [History] Potassium Chloride 10 Meq Tab* [Klor Con 10 MEQ] 10 meq PO DAILY 08/08/20 [History] Zonisamide 50 mg PO QAM 08/08/20 [History] Zonisamide 100 mg PO QPM 08/08/20 [History] Hx Tetanus, Diphtheria Vaccination/Date Given: Yes Hx Influenza Vaccination/Date Given: No Hx Pneumococcal Vaccination/Date Given: No Immunizations Up to Date: Yes Travel Risk - International Travel Have you traveled outside of the country in past 3 weeks: No - Coronavirus Screening Are you exhibiting any of the following symptoms?: No Close contact with a COVID-19 positive Pt in past 14-21 Days: No - Vaccine Status Have you recieved a Covid-19 vaccination: No - Review of Systems Constitutional: Weakness Eyes: No Symptoms Ears, Nose, & Throat: No Symptoms Respiratory: No Symptoms Cardiac: No Symptoms Abdominal/Gastrointestinal: Nausea Genitourinary Symptoms: No Symptoms Musculoskeletal: No Symptoms Skin: No Symptoms Neurological: No Symptoms Psychological: No Symptoms Endocrine: No Symptoms Hematologic/Lymphatic: No Symptoms Immunological/Allergic: No Symptoms All Other Systems: Reviewed and Negative - Past Medical History Pertinent Past Medical History: Yes Neurological History: Migraines ENT History: Other Cardiac History: Deep Vein Thrombosis Respiratory History: COPD, Pulmonary Embolism Endocrine Medical History: Diabetes Type II Musculoskeletal History: Fibromyalgia GI Medical History: No Pertinent History History: No Pertinent History Psycho-Social History: Anxiety, Depression, Other Other Medical History: PTSD. hypokalemia. MRSA. L4-L5 ruptured. sinusitis - Past Surgical History Past Surgical History: Yes Neuro Surgical History: No Pertinent History Respiratory: No Pertinent History Gastrointestinal: Cholecystectomy Musculoskeletal: Orthopedic Surgery Female Surgical History: Section, Tubal Ligation Other Surgical History: R shoulder - Social History Smoking Status: Current every day smoker How long have you smoked: 28 yrs Exposure to second hand smoke: No Drug Use: none Patient Lives Alone: Yes - Female History Hx Now: No - Nursing Vital Signs Nursing Vital Signs: Initial Vital Signs Temperature 97.7 F 01/20/21 03:41 Pulse Rate 97 H 01/20/21 03:41 Respiratory Rate 20 01/20/21 03:41 Blood Pressure 129/92 01/20/21 03:41 O2 Sat by Pulse Oximetry 98 01/20/21 03:41 Pain Scale Pain Intensity 8 - Physical Exam General Appearance: no apparent distress, alert, anxiety, obese Eye Exam: PERRL/EOMI, eyes nml inspection Ears, Nose, Throat Exam: normal ENT inspection, moist mucous membranes Neck Exam: normal inspection, non-tender, supple, full range of motion Respiratory Exam: normal breath sounds, lungs clear, airway intact, No chest t enderness, No respiratory distress Cardiovascular Exam: regular rate/rhythm, normal heart sounds, normal peripheral pulses Gastrointestinal/Abdomen Exam: soft, normal bowel sounds, No tenderness Pelvic Exam: not done Rectal Exam: not done Back Exam: normal inspection, normal range of motion, No CVA tenderness, No vertebral tenderness Extremity Exam: normal inspection, normal range of motion, pelvis stable Neurologic Exam: alert, oriented x 3, cooperative, 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 as tested, normal mood/affect, nml cerebellar function, nml station & gait, sensation nml Skin Exam: normal color, warm, dry Lymphatic Exam: No adenopathy SpO2 Interpretation: normal SpO2: 98 O2 Delivery: Room Air - Course Nursing assessment & vital signs reviewed: Yes Ordered Tests: Active Orders 24 hr Category Date Time Status Clean Catch Urine Specimen STAT Care 01/20/21 04:30 Active AMYLASE Stat Lab 01/20/21 04:28 Completed CBC W DIFF Stat Lab 01/20/21 04:59 Completed CMP Stat Lab 01/20/21 04:28 Completed LIPASE Stat Lab 01/20/21 04:28 Completed POCT GLUCOSE Stat Lab 01/20/21 03:49 Completed POCT GLUCOSE Stat Lab 01/20/21 03:51 Completed UA W/RFX UR CULTURE Stat Lab 01/20/21 04:28 Completed Urine Triage Profile Stat Lab 01/20/21 05:04 Completed Lab/Rad Data: Laboratory Result Diagrams 01/20/21 04:59 01/20/21 04:28 Laboratory Results 01/20/21 01/20/21 01/20/21 Range/Units 05:04 04:59 04:28 WBC 10.9 H (4.0-10.5) K/mm3 RBC 4.31 (4.1-5.4) M/mm3 Hgb 11.6 L (12.0-16.0) gm/dl Hct 38.7 (35-47) % MCV 89.8 (78-100) fl MCH 26.9 (26-32) pg MCHC 30.0 L (32-36) g/dl RDW 14.8 H (11.5-14.0) % Plt Count 389 (150-450) K/mm3 MPV 9.3 (7.5-11.0) fl Gran % 68.8 H (36.0-66.0) % Eos # (Auto) 0.20 (0-0.5) Absolute Lymphs (auto) 2.38 (1.0-4.6) Absolute Monos (auto) 0.77 (0.0-1.3) Lymphocytes % 21.9 L (24.0-44.0) % Monocytes % 7.1 (0.0-12.0) % Eosinophils % 1.8 (0.00-5.0) % Basophils % 0.4 (0.0-0.4) % Absolute Granulocytes 7.49 H (1.4-6.9) Basophils # 0.04 (0-0.4) Sodium 140 (137-145) mmol/L Potassium 3.4 L (3.5-5.1) mmol/L Chloride 107 (98-107) mmol/L Carbon Dioxide 24 (22-30) mmol/L Anion Gap 12.6 (5-15) MEQ/L BUN 9 (7-17) mg/dL Creatinine 0.66 (0.52-1.04) mg/dL Estimated GFR > 60.0 ML/MIN Glucose 128 H (74-106) mg/dL POC Glucometer (74 to 106) mg/dL Calcium 9.3 (8.4-10.2) mg/dL Total Bilirubin 0.20 (0.2-1.3) mg/dL AST 23 (14-36) U/L ALT 21 (0-35) U/L Alkaline Phosphatase 77 (38-126) U/L Serum Total Protein 6.5 (6.3-8.2) g/dL Albumin 3.8 (3.5-5.0) g/dL Amylase 59 (30-110) U/L Lipase 144 (23-300) U/L Urine Color (YELLOW) Urine Appearance (CLEAR) Urine pH (5-6) Ur Specific Neely (1.005-1.025) Urine Protein (Negative) Urine Ketones (NEGATIVE) Urine Blood (0-5) Wally/ul Urine Nitrite (NEGATIVE) Urine Bilirubin (NEGATIVE) Urine Urobilinogen (0-1) mg/dL Ur Leukocyte Esterase (NEGATIVE) Urine WBC (Auto) (0-5) /HPF Urine RBC (Auto) (0-2) /HPF U Hyaline Cast (Auto) (0-2) /LPF U Epithel Cells (Auto) (FEW) /HPF Urine Bacteria (Auto) (NEGATIVE) /HPF Urine Mucus (Auto) (NEGATIVE) /HPF Urine Culture Reflexed (NO) Urine Glucose (NEGATIVE) mg/dL Urine Opiates Level NEGATIVE (NEGATIVE) Ur Methadone NEGATIVE (NEGATIVE) Urine Barbiturates NEGATIVE (NEGATIVE) Ur Phencyclidine (PCP) NEGATIVE (NEGATIVE) Urine Amphetamine NEGATIVE (NEGATIVE) U Benzodiazepine Level NEGATIVE (NEGATIVE) Urine Cocaine NEGATIVE (NEGATIVE) Urine Marijuana (THC) NEGATIVE (NEGATIVE) 01/20/21 01/20/21 01/20/21 Range/Units 04:28 03:51 03:49 WBC (4.0-10.5) K/mm3 RBC (4.1-5.4) M/mm3 Hgb (12.0-16.0) gm/dl Hct (35-47) % MCV (78-100) fl MCH (26-32) pg MCHC (32-36) g/dl RDW (11.5-14.0) % Plt Count (150-450) K/mm3 MPV (7.5-11.0) fl Gran % (36.0-66.0) % Eos # (Auto) (0-0.5) Absolute Lymphs (auto) (1.0-4.6) Absolute Monos (auto) (0.0-1.3) Lymphocytes % (24.0-44.0) % Monocytes % (0.0-12.0) % Eosinophils % (0.00-5.0) % Basophils % (0.0-0.4) % Absolute Granulocytes (1.4-6.9) Basophils # (0-0.4) Sodium (137-145) mmol/L Potassium (3.5-5.1) mmol/L Chloride (98-107) mmol/L Carbon Dioxide (22-30) mmol/L Anion Gap (5-15) MEQ/L BUN (7-17) mg/dL Creatinine (0.52-1.04) mg/dL Estimated GFR ML/MIN Glucose (74-106) mg/dL POC Glucometer 128 H 125 H (74 to 106) mg/dL Calcium (8.4-10.2) mg/dL Total Bilirubin (0.2-1.3) mg/dL AST (14-36) U/L ALT (0-35) U/L Alkaline Phosphatase (38-126) U/L Serum Total Protein (6.3-8.2) g/dL Albumin (3.5-5.0) g/dL Amylase (30-110) U/L Lipase (23-300) U/L Urine Color RENA (YELLOW) Urine Appearance CLOUDY (CLEAR) Urine pH 5.0 (5-6) Ur Specific Neely 1.014 (1.005-1.025) Urine Protein NEGATIVE (Negative) Urine Ketones NEGATIVE (NEGATIVE) Urine Blood NEGATIVE (0-5) Wally/ul Urine Nitrite NEGATIVE (NEGATIVE) Urine Bilirubin NEGATIVE (NEGATIVE) Urine Urobilinogen NEGATIVE (0-1) mg/dL Ur Leukocyte Esterase NEGATIVE (NEGATIVE) Urine WBC (Auto) NONE (0-5) /HPF Urine RBC (Auto) NONE (0-2) /HPF U Hyaline Cast (Auto) 3-5 (0-2) /LPF U Epithel Cells (Auto) RARE (FEW) /HPF Urine Bacteria (Auto) NONE (NEGATIVE) /HPF Urine Mucus (Auto) SLIGHT (NEGATIVE) /HPF Urine Culture Reflexed NO (NO) Urine Glucose NEGATIVE (NEGATIVE) mg/dL Urine Opiates Level (NEGATIVE) Ur Methadone (NEGATIVE) Urine Barbiturates (NEGATIVE) Ur Phencyclidine (PCP) (NEGATIVE) Urine Amphetamine (NEGATIVE) U Benzodiazepine Level (NEGATIVE) Urine Cocaine (NEGATIVE) Urine Marijuana (THC) (NEGATIVE) - Progress Progress: improved Counseled pt/family regarding: lab results, diagnosis, need for follow-up - Departure Departure Disposition: Home Clinical Impression: Weakness Condition: Stable Critical Care Time: No Referrals: VANESA LUCINAO [Primary Care Provider] - Follow up/PCP as directed Additional Instructions: Drink plenty of fluids. Follow-up with your primary care physician for further management. Follow your diabetic diet. Take your medications as prescribed.
[2021-01-20 05:08] LABS: Absolute Neutrophil Ct (ANC) 7.49 (1.4-6.9); BASOPHIL % 0.4 % (0.0-0.4); Basophil (Absolute #) 0.04 (0-0.4); Eosinophil % 1.8 % (0.00-5.0); Hematocrit 38.7 % (35-47); Hemoglobin 11.6 gm/dl (12.0-16.0); Lymphocyte (Absolute #) 2.38 (1.0-4.6); Lymphocytes % 21.9 % (24.0-44.0); Mean Cell Volume 89.8 fl (78-100); Mean Corpuscular Hemoglobin 26.9 pg (26-32); Mean Platelet Volume 9.3 fl (7.5-11.0); Monocyte (Absolute #) 0.77 (0.0-1.3); Monocytes % 7.1 % (0.0-12.0); Neutrophil % 68.8 % (36.0-66.0); Platelet Count 389 K/mm3 (150-450); Red Blood Count 4.31 M/mm3 (4.1-5.4); Red Cell Distribution Width 14.8 % (11.5-14.0); White Blood Count 10.9 K/mm3 (4.0-10.5)
[2021-01-20 05:16] LABS: Appearance CLOUDY (CLEAR); Bilirubin NEGATIVE (NEGATIVE); Blood NEGATIVE Ery/ul (0-5); Epithelial Cells RARE /HPF (FEW); Glucose NEGATIVE (NEGATIVE); Ketones NEGATIVE (NEGATIVE); Leukocyte Esterase NEGATIVE (NEGATIVE); Mucus SLIGHT /HPF (NEGATIVE); Nitrite NEGATIVE (NEGATIVE); Protein,Urine Dip NEGATIVE (Negative); Specific Gravity 1.014 (1.005-1.025); Urobilinogen NEGATIVE mg/dL (0-1)
[2021-01-20 05:19] LABS: ALBUMIN 3.8 g/dL (3.5-5.0); ALKALINE PHOSPHATASE 77 U/L (38-126); AMYLASE 59 U/L (30-110); ANION GAP 12.6 MEQ/L (5-15); BLOOD UREA NITROGEN 9 mg/dL (7-17); CHLORIDE 107 mmol/L (98-107); Calcium 9.3 mg/dL (8.4-10.2); Carbon Dioxide 24 mmol/L (22-30); Creatinine 1 0.66 mg/dL (0.52-1.04); EST GLOMERULAR FILTRATION RATE > 60.0 ML/MIN; Glucose 128 mg/dL (74-106); LIPASE 144 U/L (23-300); Potassium 3.4 mmol/L (3.5-5.1); SGOT/AST 23 U/L (14-36); SGPT/ALT 21 U/L (0-35); SODIUM 140 mmol/L (137-145); Total Protein 6.5 g/dL (6.3-8.2)
[2021-01-20 05:25] LABS: Amphetamine,Urine NEGATIVE (NEGATIVE); Barbiturate,Urine NEGATIVE (NEGATIVE); Benzodiazepine,Urine NEGATIVE (NEGATIVE); Methadone,Urine NEGATIVE (NEGATIVE); Opiate,Urine NEGATIVE (NEGATIVE); PCP,Urine NEGATIVE (NEGATIVE); THC,Urine NEGATIVE (NEGATIVE)
[2021-01-20 05:27] LABS: Cocaine,Urine NEGATIVE (NEGATIVE)
[2021-01-20 05:38] VITALS: BP 106/69; PULSE 87
== END 2021-01-20 05:43 | disposition home or self-care (01) ==
LOC: ED 03:40
DX: R53.1 Weakness (principal); R61 Generalized hyperhidrosis; E11.8 Type 2 diabetes mellitus with unspecified complications; Z79.84 Long term (current) use of oral hypoglycemic drugs; Z79.4 Long term (current) use of insulin; Z72.0 Tobacco use
CPT/HCPCS: 36415; 80053; 80307; 81001; 82150; 82947; 83690; 85025; 99283

== ENCOUNTER 2021-02-21 15:28 | Emergency (ER) | payer OTHER ==
[2021-02-21] MEDS ORDERED: solu-MEDROL 125 MG, Sterile H2O 10 ml 2 ML IV ONE ×2 (15:53)
[2021-02-21] MEDS ORDERED: HYDROCODONE-ACETAMIN 2.5-108/5 ML SOLUTION PO STA ×2 (15:56→20:20)
[2021-02-21] MEDS ORDERED: Sodium Chloride 0.9% 1000 ML 1,000 ML IV SCH (16:00)
[2021-02-21] MEDS ORDERED: Sodium Chloride 0.9% 1000 ML 1,000 ML ONE (16:09)
[2021-02-21] MEDS ORDERED: HYDROCODONE-ACETAMIN 2.5-108/5 ML SOLUTION ONE ×2 (16:09→20:22)
[2021-02-21] MEDS ORDERED: solu-MEDROL ONE (16:09)
--- NOTE | 2021-02-21 16:10 | ERPHSYRPT ---
- History of Present Illness Time Seen by Provider: 02/21/21 15:45 Source: patient Exam Limitations: no limitations Patient Subjective Stated Complaint: pt here for pain with a deep breath, and nausea, she was dx with covid and PE on 02/19/2021. pt is on a blood thinner, has hx of PE in past. fver 2 days ago, Triage Nursing Assessment: pt alert, arrived per wc , resp easy , face mask in place. chest diminished. no edema noted. abd soft, Physician History: This is a 35-year-old white female who is obese, insulin-dependent diabetic, has gastroesophageal reflux disease, COPD, migraine headaches, fibromyalgia, anxiety and depression as well as PTSD and presents with shortness of breath, body aches and was diagnosed Covid positive infection on 02/19/2021. Patient has a history of pulmonary emboli and DVTs and is taking Eliquis for this. Patient currently is a daily smoker of cigarettes. Patient is scheduled to have immunotherapy infusion at the respiratory clinic tomorrow morning. Patient states they want to be sure the patient does not have any pulmonary emboli. Timing/Duration: day(s) (A few days) Severity of Dyspnea-Max: mild (To moderate) Severity of Dyspnea-Current: mild (To moderate) Possible Cause: no prior episodes Modifying Factors: Improves With: coughing, deep breath (She has some mild inspiratory pain with deep breath) Associated Symptoms: cough, chest pain/discomfort (With a deep breath), painful breathing Allergies/Adverse Reactions: bupropion [From Wellbutrin] Allergy (Verified 02/21/21 15:54) dicyclomine [From Bentyl] Allergy (Verified 02/21/21 15:54) haloperidol [From Haldol] Allergy (Verified 02/21/21 15:54) insulin glargine [From Basaglar KwikPen U-100 Insulin] Allergy (Verified 02/21/21 15:54) ketorolac [From Toradol] Allergy (Verified 02/21/21 15:54) metoclopramide [From Reglan] Allergy (Verified 02/21/21 15:54) ondansetron [From Zofran] Allergy (Verified 02/21/21 15:54) prochlorperazine [From Compazine] Allergy (Verified 02/21/21 15:54) Home Medications: Carbidopa/Levodopa [Sinemet 25-250 mg Tablet] 1 tab PO BID 08/23/19 [History] Diphenhydramine HCl 25 mg [Benadryl 25 mg Capsule] 25 mg PO DAILY 08/23/19 [History] Fluoxetine HCl [Prozac] 80 mg PO DAILY 08/23/19 [History] Gabapentin 1,500 mg PO DAILY 08/23/19 [History] Insulin Detemir [Levemir] 60 units SQ DAILY 08/23/19 [History] Metformin HCl 500 mg [Glucophage 500 MG] 1,000 mg PO BID 08/23/19 [History] Pioglitazone 30 mg [Actos 30 MG] 30 mg PO DAILY 08/23/19 [History] Vits W-Ca,Fe,FA(<1Mg) [] 1 tab PO DAILY 08/23/19 [History] Zolpidem Tartrate 5 mg [Ambien 5 MG Tablet] 5 mg PO DAILY 08/23/19 [History] Albuterol Sulfate [Albuterol Sulfate Hfa] 2 inh PO Q6H PRN 08/08/20 [History] Furosemide 40 mg [Lasix 40 MG] 40 mg PO DAILY 08/08/20 [History] Glipizide Xl 10 mg [Glucotrol Xl 10 MG] 10 mg PO BID 08/08/20 [History] PANTOPRAZOLE 40 mg Tablet [Protonix 40MG Tablet] 40 mg PO QAM 08/08/20 [History] Potassium Chloride 10 Meq Tab* [Klor Con 10 MEQ] 10 meq PO DAILY 08/08/20 [History] Zonisamide 50 mg PO QAM 08/08/20 [History] Zonisamide 100 mg PO QPM 08/08/20 [History] Hx Tetanus, Diphtheria Vaccination/Date Given: Yes Hx Influenza Vaccination/Date Given: No Hx Pneumococcal Vaccination/Date Given: No Immunizations Up to Date: Yes Travel Risk - International Travel Have you traveled outside of the country in past 3 weeks: No - Coronavirus Screening Are you exhibiting any of the following symptoms?: Yes Symptoms: Fever, Shortness of Breath, Vomiting/Diarrhea Close contact with a COVID-19 positive Pt in past 14-21 Days: No - Vaccine Status Have you recieved a Covid-19 vaccination: No - Review of Systems Constitutional: Weakness Eyes: No Symptoms Ears, Nose, & Throat: No Symptoms Respiratory: Cough, Dyspnea, Dyspnea on Exertion (SEGURA) Abdominal/Gastrointestinal: Nausea, No Abdominal Pain, No Vomiting, No Diarrhea, No Constipation Genitourinary Symptoms: No Symptoms Musculoskeletal: Arthralgias, Myalgias Skin: No Symptoms Neurological: No Symptoms Psychological: No Symptoms Endocrine: No Symptoms Hematologic/Lymphatic: No Symptoms Immunological/Allergic: No Symptoms All Other Systems: Reviewed and Negative - Past Medical History Pertinent Past Medical History: Yes Neurological History: Migraines ENT History: Other Cardiac History: Deep Vein Thrombosis Respiratory History: COPD, Pulmonary Embolism Endocrine Medical History: Diabetes Type II Musculoskeletal History: Fibromyalgia GI Medical History: No Pertinent History History: No Pertinent History Psycho-Social History: Anxiety, Depression, Other Other Medical History: PTSD. hypokalemia. MRSA. L4-L5 ruptured. sinusitis - Past Surgical History Past Surgical History: Yes Neuro Surgical History: No Pertinent History Respiratory: No Pertinent History Gastrointestinal: Cholecystectomy Musculoskeletal: Orthopedic Surgery Female Surgical History: Section, Tubal Ligation Other Surgical History: R shoulder - Social History Smoking Status: Current every day smoker How long have you smoked: 28 yrs Exposure to second hand smoke: No Drug Use: none Patient Lives Alone: Yes - Female History Hx Last Menstrual Period: unsure Hx Now: No - Nursing Vital Signs Nursing Vital Signs: Initial Vital Signs Temperature 97.2 F 02/21/21 15:39 Pulse Rate 107 H 02/21/21 15:39 Respiratory Rate 18 02/21/21 15:39 Blood Pressure 132/94 02/21/21 15:39 O2 Sat by Pulse Oximetry 99 02/21/21 15:39 Pain Scale Pain Intensity 4 - Physical Exam General Appearance: no apparent distress, alert, anxiety, obese Eye Exam: PERRL/EOMI, eyes nml inspection Ears, Nose, Throat Exam: hearing grossly normal, normal ENT inspection, normal pharynx Neck Exam: normal inspection, non-tender, supple, full range of motion Respiratory Exam: normal breath sounds, lungs clear, airway intact, No chest tenderness, No respiratory distress Cardiovascular/Chest Exam: normal heart sounds, tachycardia Abdominal/Gastrointestinal Exam: soft, normal bowel sounds, No tenderness Rectal Exam: not done Extremity Exam: non-tender, normal range of motion, normal inspection Neurologic Exam: alert, oriented x 3, cooperative, 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 There is new sinus tachycardia on today's EKG when compared to the EKG performed on 08/08/2020) Ordered Tests: Active Orders 24 hr Category Date Time Status EKG-ER Only STAT Care 02/21/21 15:53 Active IV Insertion STAT Care 02/21/21 15:53 Active Pulse Oximetry (ED) STAT Care 02/21/21 15:53 Active CHEST 1 VIEW (PORTABLE) Stat Exams 02/21/21 15:54 Taken CHEST WITH CONTRAST [CT] Stat Exams 02/21/21 17:36 Taken BLOOD CULTURE Stat Lab 02/21/21 16:20 Received CBC W DIFF Stat Lab 02/21/21 15:55 Completed CMP Stat Lab 02/21/21 15:55 Completed D-DIMER QUANTITATIVE Stat Lab 02/21/21 15:55 Completed INFLUENZA A+B JOSE Stat Lab 02/21/21 16:15 Completed Lactic Acid Stat Lab 02/21/21 15:53 Completed Starr Screen Stat Lab 02/21/21 15:55 Completed NT PRO BNP Stat Lab 02/21/21 15:55 Completed PROTIME WITH INR Stat Lab 02/21/21 15:55 Completed TROPONIN Q3H Lab 02/21/21 15:55 Completed TROPONIN Q3H Lab 02/21/21 19:21 Received TROPONIN Q3H Lab 02/21/21 22:00 Ordered TROPONIN Q3H Lab 02/22/21 01:00 Ordered TROPONIN Q3H Lab 02/22/21 04:00 Ordered Medication Summary Generic Name Dose Route Start Last Admin Trade Name Freq PRN Reason Stop Dose Admin Sodium Chloride 1,000 mls @ 100 mls/hr 02/21/21 16:00 02/21/21 16:11 Sodium Chloride 0.9% 1000 Ml IV 03/23/21 15:59 100 mls/hr .Q10H XENA Administration Discontinued Medications Generic Name Dose Route Start Last Admin Trade Name Óscar PRN Reason Stop Dose Admin Hydrocodone Bitart/Acetaminophen 10 ml 02/21/21 15:56 02/21/21 16:11 Hydrocodone/Acetaminophen 5 Ml Udcup PO 02/21/21 15:57 10 ml STAT STA Administration Hydrocodone Bitart/Acetaminophen Confirm 02/21/21 16:09 Hydrocodone/Acetaminophen 5 Ml Udcup Administered 02/21/21 16:10 Dose 10 ml .ROUTE .STK-MED ONE Methylprednisolone Sodium 0 mg 02/21/21 15:53 02/21/21 16:11 Succinate 125 mg/ Sterile IV 02/21/21 15:54 125 mg Water 2 ml STAT ONE Administration Methylprednisolone Sodium Succinate Confirm 02/21/21 16:09 Methylprednis Sod Succ 125 Mg/2 Ml Vial Administered 02/21/21 16:10 Dose 125 mg .ROUTE .STK-MED ONE Lab/Rad Data: Laboratory Result Diagrams 02/21/21 15:55 02/21/21 15:55 Laboratory Results 02/21/21 02/21/21 02/21/21 Range/Units 16:15 15:55 15:55 WBC (4.0-10.5) K/mm3 RBC (4.1-5.4) M/mm3 Hgb (12.0-16.0) gm/dl Hct (35-47) % MCV (78-100) fl MCH (26-32) pg MCHC (32-36) g/dl RDW (11.5-14.0) % Plt Count (150-450) K/mm3 MPV (7.5-11.0) fl Gran % (36.0-66.0) % Eos # (Auto) (0-0.5) Absolute Lymphs (auto) (1.0-4.6) Absolute Monos (auto) (0.0-1.3) Lymphocytes % (24.0-44.0) % Monocytes % (0.0-12.0) % Eosinophils % (0.00-5.0) % Basophils % (0.0-0.4) % Absolute Granulocytes (1.4-6.9) Basophils # (0-0.4) PT (9.4-12.5) SECONDS INR (0.8-3.0) D-Dimer (215-500) ng/mL Sodium (137-145) mmol/L Potassium (3.5-5.1) mmol/L Chloride (98-107) mmol/L Carbon Dioxide (22-30) mmol/L Anion Gap (5-15) MEQ/L BUN (7-17) mg/dL Creatinine (0.52-1.04) mg/dL Estimated GFR ML/MIN Glucose (74-106) mg/dL Lactic Acid (0.4-2.0) Calcium (8.4-10.2) mg/dL Total Bilirubin (0.2-1.3) mg/dL AST (14-36) U/L ALT (0-35) U/L Alkaline Phosphatase (38-126) U/L Troponin I < 0.012 (0.000-0.034) ng/mL NT-Pro-B Natriuret Pep (0-450) pg/mL Serum Total Protein (6.3-8.2) g/dL Albumin (3.5-5.0) g/dL Monoscreen NEGATIVE (Negative) Influenza Type A Ag NEGATIVE (NEGATIVE) Influenza Type B Ag NEGATIVE (NEGATIVE) 02/21/21 02/21/21 02/21/21 Range/Units 15:55 15:55 15:55 WBC 6.2 (4.0-10.5) K/mm3 RBC 4.84 (4.1-5.4) M/mm3 Hgb 13.1 (12.0-16.0) gm/dl Hct 42.3 (35-47) % MCV 87.4 (78-100) fl MCH 27.1 (26-32) pg MCHC 31.0 L (32-36) g/dl RDW 14.1 H (11.5-14.0) % Plt Count 303 (150-450) K/mm3 MPV 10.3 (7.5-11.0) fl Gran % 47.5 (36.0-66.0) % Eos # (Auto) 0.17 (0-0.5) Absolute Lymphs (auto) 2.44 (1.0-4.6) Absolute Monos (auto) 0.64 (0.0-1.3) Lymphocytes % 39.2 (24.0-44.0) % Monocytes % 10.3 (0.0-12.0) % Eosinophils % 2.7 (0.00-5.0) % Basophils % 0.3 (0.0-0.4) % Absolute Granulocytes 2.96 (1.4-6.9) Basophils # 0.02 (0-0.4) PT 12.3 (9.4-12.5) SECONDS INR 1.04 (0.8-3.0) D-Dimer 1034 H* (215-500) ng/mL Sodium 138 (137-145) mmol/L Potassium 3.7 (3.5-5.1) mmol/L Chloride 106 (98-107) mmol/L Carbon Dioxide 21 L (22-30) mmol/L Anion Gap 14.6 (5-15) MEQ/L BUN 5 L (7-17) mg/dL Creatinine 0.54 (0.52-1.04) mg/dL Estimated GFR > 60.0 ML/MIN Glucose 143 H (74-106) mg/dL Lactic Acid (0.4-2.0) Calcium 9.4 (8.4-10.2) mg/dL Total Bilirubin 0.40 (0.2-1.3) mg/dL AST 23 (14-36) U/L ALT 19 (0-35) U/L Alkaline Phosphatase 80 (38-126) U/L Troponin I (0.000-0.034) ng/mL NT-Pro-B Natriuret Pep 23.2 (0-450) pg/mL Serum Total Protein 7.1 (6.3-8.2) g/dL Albumin 4.1 (3.5-5.0) g/dL Monoscreen (Negative) Influenza Type A Ag (NEGATIVE) Influenza Type B Ag (NEGATIVE) 02/21/21 Range/Units 15:53 WBC (4.0-10.5) K/mm3 RBC (4.1-5.4) M/mm3 Hgb (12.0-16.0) gm/dl Hct (35-47) % MCV (78-100) fl MCH (26-32) pg MCHC (32-36) g/dl RDW (11.5-14.0) % Plt Count (150-450) K/mm3 MPV (7.5-11.0) fl Gran % (36.0-66.0) % Eos # (Auto) (0-0.5) Absolute Lymphs (auto) (1.0-4.6) Absolute Monos (auto) (0.0-1.3) Lymphocytes % (24.0-44.0) % Monocytes % (0.0-12.0) % Eosinophils % (0.00-5.0) % Basophils % (0.0-0.4) % Absolute Granulocytes (1.4-6.9) Basophils # (0-0.4) PT (9.4-12.5) SECONDS INR (0.8-3.0) D-Dimer (215-500) ng/mL Sodium (137-145) mmol/L Potassium (3.5-5.1) mmol/L Chloride (98-107) mmol/L Carbon Dioxide (22-30) mmol/L Anion Gap (5-15) MEQ/L BUN (7-17) mg/dL Creatinine (0.52-1.04) mg/dL Estimated GFR ML/MIN Glucose (74-106) mg/dL Lactic Acid 1.2 (0.4-2.0) Calcium (8.4-10.2) mg/dL Total Bilirubin (0.2-1.3) mg/dL AST (14-36) U/L ALT (0-35) U/L Alkaline Phosphatase (38-126) U/L Troponin I (0.000-0.034) ng/mL NT-Pro-B Natriuret Pep (0-450) pg/mL Serum Total Protein (6.3-8.2) g/dL Albumin (3.5-5.0) g/dL Monoscreen (Negative) Influenza Type A Ag (NEGATIVE) Influenza Type B Ag (NEGATIVE) - Progress Progress: improved, re-examined Air Movement: good Progress Note: 02/21/21 19:56 CTA of chest shows no pulmonary emboli and no acute cardiopulmonary process. Blood Culture(s) Obtained: Yes Antibiotics given: No Counseled pt/family regarding: lab results, diagnosis, need for follow-up, rad results - Departure Departure Disposition: Home Clinical Impression: COVID-19 virus infection, Shortness of breath Condition: Stable Critical Care Time: No Referrals: ANKITA,VANESA [Primary Care Provider] - Follow up/PCP as directed Additional Instructions: Drink plenty of fluids. Take your medication as prescribed. Follow-up with your primary care physician for further management. Prescriptions: Hydrocodone/Acetaminophen [Hydrocodone-Acetamn 7.5-325/15] 10 ml PO Q8H PRN PRN #120 ml MDD 30 ml PRN Reason: Cough Prednisone 10 mg [Deltasone 10 mg] 10 mg PO TID #12 tablet
[2021-02-21 16:17] LABS: Absolute Neutrophil Ct (ANC) 2.96 (1.4-6.9); Basophil (Absolute #) 0.02 (0-0.4); Eosinophil % 2.7 % (0.00-5.0); Eosinophil (Absolute #) 0.17 (0-0.5); Hematocrit 42.3 % (35-47); Hemoglobin 13.1 gm/dl (12.0-16.0); Lymphocyte (Absolute #) 2.44 (1.0-4.6); Lymphocytes % 39.2 % (24.0-44.0); Mean Cell Volume 87.4 fl (78-100); Mean Corpuscular Hemoglobin 27.1 pg (26-32); Mean Platelet Volume 10.3 fl (7.5-11.0); Monocyte (Absolute #) 0.64 (0.0-1.3); Monocytes % 10.3 % (0.0-12.0); Neutrophil % 47.5 % (36.0-66.0); Platelet Count 303 K/mm3 (150-450); Red Blood Count 4.84 M/mm3 (4.1-5.4); Red Cell Distribution Width 14.1 % (11.5-14.0); White Blood Count 6.2 K/mm3 (4.0-10.5)
[2021-02-21 17:05] LABS: INFLUENZA A NEGATIVE (NEGATIVE); INFLUENZA B NEGATIVE (NEGATIVE)
[2021-02-21 17:14] LABS: ALBUMIN 4.1 g/dL (3.5-5.0); ALKALINE PHOSPHATASE 80 U/L (38-126); ANION GAP 14.6 MEQ/L (5-15); BLOOD UREA NITROGEN 5 mg/dL (7-17); CHLORIDE 106 mmol/L (98-107); Calcium 9.4 mg/dL (8.4-10.2); Carbon Dioxide 21 mmol/L (22-30); Creatinine 1 0.54 mg/dL (0.52-1.04); EST GLOMERULAR FILTRATION RATE > 60.0 ML/MIN; Glucose 143 mg/dL (74-106); NT PRO BNP 23.2 pg/mL (0-450); Potassium 3.7 mmol/L (3.5-5.1); SGOT/AST 23 U/L (14-36); SGPT/ALT 19 U/L (0-35); SODIUM 138 mmol/L (137-145); Total Protein 7.1 g/dL (6.3-8.2)
[2021-02-21 17:33] LABS: INR 1.04 (0.8-3.0); PROTIME 12.3 SECONDS (9.4-12.5)
[2021-02-21 20:10] VITALS: BP 113/58; PULSE 67; O2SAT 97
--- NOTE | 2021-02-21 21:52 | XRAY ---
Indication: Cough, short of breath, chest pain, and elevated d-dimer. Multiple contiguous images obtained through the chest using 100 cc Isovue 370 contrast and PE protocol. Comparison: August 08, 2020. There is good opacification of the pulmonary arteries to include the lobar and segmental branches. No pulmonary embolus. Heart not enlarged. Stable small mediastinal and right hilar calcified nodes. No pathologic mediastinal/hilar lymphadenopathy. Lungs again demonstrates a few tiny right lung calcified granulomas. No suspicious pulmonary mass, infiltrate, consolidation, or effusion. Bony thorax intact again with mild degenerative changes throughout the spine. Limited upper abdomen again demonstrates mild fatty liver, left adrenal adenoma, and cholecystectomy clips. Impression: 1. Negative pulmonary embolus. No new/acute cardiopulmonary abnormalities. 2. Again incidental fatty liver, left adrenal adenoma, chronic bony findings, and old granulomatous disease. Comment: Preliminary interpretation made by [facility]. No critical discrepancy.
--- NOTE | 2021-02-21 21:52 | XRAY ---
Indication: Cough and short of breath. Comparison: August 23, 2019. Portable chest again demonstrates normal heart and lungs with incidental right mid lung calcified granuloma. Bony thorax intact with interval distal right clavicle resection. Impression: Continued nonacute chest with chronic features.
== END 2021-02-21 20:25 | disposition home or self-care (01) ==
LOC: ED 15:28
DX: U07.1 COVID-19 (principal); R06.02 Shortness of breath; M79.10 Myalgia, unspecified site; E66.9 Obesity, unspecified; E11.9 Type 2 diabetes mellitus without complications; Z79.4 Long term (current) use of insulin; Z79.84 Long term (current) use of oral hypoglycemic drugs; J44.9 Chronic obstructive pulmonary disease, unspecified; Z72.0 Tobacco use; Z86.711 Personal history of pulmonary embolism; Z79.01 Long term (current) use of anticoagulants; Z86.718 Personal history of other venous thrombosis and embolism; Z79.899 Other long term (current) drug therapy; Z79.891 Long term (current) use of opiate analgesic; Z79.52 Long term (current) use of systemic steroids
CPT/HCPCS: 36000; 36415; 71045; 71260; 80053; 83605; 83880; 84484; 85025; 85379; 85610; 86308; 87040; 87400; 93005; 94760; 96374; 99284; J2930; A9270-GY

== ENCOUNTER 2021-05-17 05:17 | Emergency (ER) | payer OTHER ==
[2021-05-17] MEDS ORDERED: TORAdol 30 mg Injection IM ONE (06:07)
[2021-05-17] MEDS ORDERED: TORAdol 30 mg Injection ONE (06:10)
--- NOTE | 2021-05-17 06:15 | ERPHSYRPT ---
- History of Present Illness Time Seen by Provider: 05/17/21 06:09 Source: patient Exam Limitations: no limitations Patient Subjective Stated Complaint: Patient states she twisted her left knee getting out of a car approx 2 weeks ago. The pain has been progressively getting worse. The pain is now "shooting down my leg and into my foot." Triage Nursing Assessment: Patient walked back to ED with a slow gait. Patient trying not to put too much weight on LLE during ambulation; gaurding LLE. She is alert and oriented and answering questions appropriately. Pedal pulse present in left foot. [facility] checks to LLE WNL. Physician History: Patient states she twisted her left knee getting out of a car approx 2 weeks ago. The pain has been progressively getting worse. The pain is now "shooting down my leg and into my foot." Patient trying not to put too much weight on LLE during ambulation; gaurding LLE. Method of Injury: fell, twisted Occurred: last week Quality: constant Severity of Pain-Max: moderate Severity of Pain-Current: moderate Lower Extremities Pain: foot: left, ankle: left Modifying Factors: Improves With: nothing Associated Symptoms: unable to bear weight Allergies/Adverse Reactions: bupropion [From Wellbutrin] Allergy (Verified 05/17/21 05:24) dicyclomine [From Bentyl] Allergy (Verified 05/17/21 05:24) haloperidol [From Haldol] Allergy (Verified 05/17/21 05:24) insulin glargine [From Basaglar KwikPen U-100 Insulin] Allergy (Verified 05/17/21 05:24) ketorolac [From Toradol] Allergy (Verified 05/17/21 05:24) metoclopramide [From Reglan] Allergy (Verified 05/17/21 05:24) ondansetron [From Zofran] Allergy (Verified 05/17/21 05:24) prochlorperazine [From Compazine] Allergy (Verified 05/17/21 05:24) Home Medications: Carbidopa/Levodopa [Sinemet 25-250 mg Tablet] 1 tab PO BID 08/23/19 [History] Diphenhydramine HCl 25 mg [Benadryl 25 mg Capsule] 25 mg PO DAILY 08/23/19 [History] Fluoxetine HCl [Prozac] 80 mg PO DAILY 08/23/19 [History] Gabapentin 1,500 mg PO DAILY 08/23/19 [History] Metformin HCl 500 mg [Glucophage 500 MG] 1,000 mg PO BID 08/23/19 [History] Pioglitazone 30 mg [Actos 30 MG] 30 mg PO DAILY 08/23/19 [History] Vits W-Ca,Fe,FA(<1Mg) [] 1 tab PO DAILY 08/23/19 [History] Zolpidem Tartrate 5 mg [Ambien 5 MG Tablet] 5 mg PO DAILY 08/23/19 [History] Furosemide 40 mg [Lasix 40 MG] 40 mg PO DAILY 08/08/20 [History] Glipizide Xl 10 mg [Glucotrol Xl 10 MG] 10 mg PO BID 08/08/20 [History] PANTOPRAZOLE 40 mg Tablet [Protonix 40MG Tablet] 40 mg PO QAM 08/08/20 [History] Potassium Chloride 10 Meq Tab* [Klor Con 10 MEQ] 10 meq PO DAILY 08/08/20 [History] Zonisamide 50 mg PO QAM 08/08/20 [History] Zonisamide 100 mg PO QPM 08/08/20 [History] Apixaban [Eliquis 5 mg Tablet] 1 tab PO BID 05/17/21 [History] Hx Tetanus, Diphtheria Vaccination/Date Given: Yes Hx Influenza Vaccination/Date Given: No Hx Pneumococcal Vaccination/Date Given: No Immunizations Up to Date: Yes Travel Risk - International Travel Have you traveled outside of the country in past 3 weeks: No - Coronavirus Screening Are you exhibiting any of the following symptoms?: No Close contact with a COVID-19 positive Pt in past 14-21 Days: No - Vaccine Status Have you recieved a Covid-19 vaccination: No - Review of Systems Constitutional: No Symptoms Eyes: No Symptoms Ears, Nose, & Throat: No Symptoms Respiratory: No Symptoms Cardiac: No Symptoms Abdominal/Gastrointestinal: No Symptoms Genitourinary Symptoms: No Symptoms Musculoskeletal: Fall, Joint Pain (left ankle), Joint Swelling - Past Medical History Pertinent Past Medical History: Yes Neurological History: Migraines ENT History: Other Cardiac History: Deep Vein Thrombosis Respiratory History: COPD, Pulmonary Embolism Endocrine Medical History: Diabetes Type II Musculoskeletal History: Fibromyalgia GI Medical History: No Pertinent History History: No Pertinent History Psycho-Social History: Anxiety, Depression, Other Female Reproductive Disorders: No Pertinent History Other Medical History: PTSD. hypokalemia. MRSA. L4-L5 ruptured. sinusitis - Past Surgical History Past Surgical History: Yes Neuro Surgical History: No Pertinent History Cardiac: No Pertinent History Respiratory: No Pertinent History Gastrointestinal: Cholecystectomy Genitourinary: No Pertinent History Musculoskeletal: Orthopedic Surgery Female Surgical History: Section, Tubal Ligation Other Surgical History: R shoulder - Social History Smoking Status: Current every day smoker How long have you smoked: 28 yrs Exposure to second hand smoke: No Drug Use: none Patient Lives Alone: No - Female History Hx Last Menstrual Period: A long time ago Hx Now: No - Nursing Vital Signs Nursing Vital Signs: Initial Vital Signs Temperature 96.6 F 05/17/21 05:24 Pulse Rate 94 H 05/17/21 05:24 Respiratory Rate 18 05/17/21 05:24 Blood Pressure 148/99 05/17/21 05:24 O2 Sat by Pulse Oximetry 98 05/17/21 05:24 Pain Scale Pain Intensity 9 - Physical Exam General Appearance: no apparent distress Eyes, Ears, Nose, Throat Exam: normal ENT inspection Neck Exam: normal inspection Cardiovascular/Respiratory Exam: chest non-tender Gastrointestinal/Abdominal Exam: non-tender Back Exam: normal inspection Hips Exam: bilateral: non-tender Legs Exam: left leg: limited range of motion, soft tissue tenderness, swelling Ankle Exam: left ankle: joint effusion, limited range of motion, pain, soft tissue tenderness Foot Exam: left foot: soft tissue tenderness Neuro/Tendon Exam: normal sensation, normal motor functions, normal tendon functions, responds to pain, no evidence tendon injury, No motor deficit, No sensory deficit Mental Status Exam: alert, oriented x 3 Skin Exam: normal color SpO2 Interpretation: normal SpO2: 98 O2 Delivery: Room Air Procedures - Splinting Time of Procedure: 06:13 Location of Splint: Ankle, Lower Leg Type of Splint: Walking Boot/Shoe Splint Applied By: ED Nurse Pre-Proc Neuro Vasc Exam: normal Post-Proc Neuro Vasc Exam: neurovascular intact - Course Nursing assessment & vital signs reviewed: Yes - Radiology Exams Ankle X-ray Interpretation: Reviewed by me, Non-displaced Fracture (lower end fibula), Subluxation Ordered Tests: Active Orders 24 hr Category Date Time Status Splint STAT Care 05/17/21 06:09 Active ANKLE (3 VIEWS) Stat Exams 05/17/21 05:46 Taken FOOT (MINIMUM 3 VIEWS) Stat Exams 05/17/21 05:46 Taken KNEE (3 VIEWS) Stat Exams 05/17/21 05:46 Taken LOWER LEG Stat Exams 05/17/21 05:46 Taken Medication Summary Discontinued Medications Generic Name Dose Route Start Last Admin Trade Name Freq PRN Reason Stop Dose Admin Ketorolac Tromethamine 60 mg 05/17/21 06:07 Ketorolac Tromethamine 30 Mg/Ml Inj IM 05/17/21 06:08 STAT ONE Ketorolac Tromethamine Confirm 05/17/21 06:10 Ketorolac Tromethamine 30 Mg/Ml Inj Administered 05/17/21 06:11 Dose 60 mg .ROUTE .STK-MED ONE - Progress Progress: improved, pain not gone completely Counseled pt/family regarding: diagnosis, need for follow-up (ortho clinic on wednesday), rad results - Departure Departure Disposition: Home Clinical Impression: Sprain and strain of left ankle Condition: Stable Critical Care Time: No Referrals: VANESA LUCIANO [Primary Care Provider] - [facility]-Ortho M-F [id number] Instructions: Ankle Sprain (DC), Ankle Dislocation (DC) Forms: Work/School Release Form Prescriptions: Amoxicillin 500 mg Cap [Amoxil 500 mg] 500 mg PO TID #30 cap Hydrocodone/Acetaminophen [Hydrocodone-Acetamin 10-325 mg] 1 tablet PO QIDPRN PRN #20 tablet MDD 4 PRN Reason: Mild To Moderate Pain
[2021-05-17 06:18] VITALS: BP 115/75; PULSE 97
[2021-05-17 06:20] VITALS: O2SAT 98
[2021-05-17] MEDS ORDERED: MORPHINE SULFATE 4 MG INJ ONE (06:21)
[2021-05-17] MEDS ORDERED: MORPHINE SULFATE 4 MG INJ IV ONE (06:21)
--- NOTE | 2021-05-17 07:54 | XRAY ---
Indication: Pain following twisting injury. Comparison: None 3 view left knee demonstrates minimal medial joint space narrowing and small posterior fabella. No other bony, articular, or soft tissue abnormalities.
--- NOTE | 2021-05-17 07:56 | XRAY ---
Indication: Pain following twisting injury. Comparison: None 2 view left lower leg demonstrates tiny proximal anterior soft tissue calcified granuloma. No other bony, articular, or soft tissue abnormalities.
--- NOTE | 2021-05-17 07:58 | XRAY ---
Indication: Pain following twisting injury. Comparison: None 3 view left ankle demonstrates small spurring plantar/posterior calcaneus and distal tibia anteriorly. No other bony, articular, or soft tissue abnormalities.
--- NOTE | 2021-05-17 07:58 | XRAY ---
Indication: Pain following twisting injury. Comparison: None 3 nonweightbearing views left foot demonstrates small spurring plantar/posterior calcaneus and distal tibia anteriorly. Minimal midfoot degenerative changes. No other bony, articular, or soft tissue abnormalities.
== END 2021-05-17 06:41 | disposition home or self-care (01) ==
LOC: ED 05:17
DX: S93.402A Sprain of unspecified ligament of left ankle, initial encounter (principal); S96.912A Strain of unspecified muscle and tendon at ankle and foot level, left foot, initial encounter; X50.0XXA Overexertion from strenuous movement or load, initial encounter; M25.572 Pain in left ankle and joints of left foot; M25.562 Pain in left knee; J44.9 Chronic obstructive pulmonary disease, unspecified; E11.9 Type 2 diabetes mellitus without complications; Z86.718 Personal history of other venous thrombosis and embolism; Z79.01 Long term (current) use of anticoagulants; Z79.84 Long term (current) use of oral hypoglycemic drugs; Z79.899 Other long term (current) drug therapy; Z72.0 Tobacco use; Z79.891 Long term (current) use of opiate analgesic
CPT/HCPCS: 73562; 73590; 73610; 73630; 96372; 99284; J1885; J2270; L4386